=== PATIENT | female | born 1995 | race Caucasian/White ===

== ENCOUNTER 2023-05-13 10:43 | Outpatient (CLI) | payer OTHER, SELFPAY ==
--- NOTE | 2023-05-13 11:00 | CRLHL7_ITS ---
For Patients: As a result of the Century Cures Act, medical imaging exams and procedure reports are released immediately into your electronic medical record. You may view this report before your referring provider. If you have questions, please contact your health care provider. INDICATION: Abdominal pain TECHNIQUE: Ultrasound abdomen limited. Sonographic images of the right upper quadrant were obtained using michael-scale and color Doppler images. COMPARISON: None FINDINGS: Liver: Normal in size and echotexture. No masses. No intrahepatic biliary dilatation. Gallbladder: Cholelithiasis. Normal wall thickness. No pericholecystic fluid. Common bile duct: 3 mm. Pancreas: Normal. Right kidney: 9.6 cm. Normal echotexture and cortex. No masses, stones, or hydronephrosis. Vasculature: Proximal abdominal aorta and IVC are normal. IMPRESSION: Cholelithiasis in an otherwise normal appearing gallbladder. Normal common bile duct. Dictated by Gage Mcconnell MD @ 05/13/2023 2:24:35 PM (Electronically Signed)
== END 2023-05-13 10:44 | disposition home or self-care (01) ==
LOC: US 10:43
PROVIDERS: PCP Family Medicine; Visit Provider Family Medicine
DX: R10.11 Right upper quadrant pain (principal); K80.20 Calculus of gallbladder without cholecystitis without obstruction
CPT/HCPCS: 76705

== ENCOUNTER 2023-05-29 08:05 | Day surgery (SDC) | payer OTHER, SELFPAY ==
[2023-05-29] VITALS (13 sets, daily range): BP systolic 100–116; BP diastolic 62–78; PULSE 54–69; RESP 16–18; TEMP 36.4–36.9; O2SAT 94–99; BMI 33.3
[2023-05-29 08:32] LABS: Ur HCG Qualitative* Negative (Negative)
[2023-05-29] MEDS: SODIUM CHLORIDE 0.9 % (FLUSH) 10 ML SYRINGE IVF (08:47)
[2023-05-29] MEDS: LACTATED RINGERS 1000 ML 1,000 ML 100 ML IV (08:47)
--- NOTE | 2023-05-29 09:00 | PM.GSPRC ---
Operative Note Pre-op diagnosis: Biliary colic Post-op diagnosis: Same Type of Procedure: Laparoscopic cholecystectomy Indications: Patient is a 27-year-old female with right upper quadrant pain. She was found to have gallstones. We discussed symptoms biliary colic and, while her symptoms came on slightly longer than 1 would expect for typical biliary colic, we discussed options and after discussion of risks and benefits she elected to proceed with cholecystectomy. Procedure Description: After discussing the risks and benefits of the procedure, the patient signed informed consent.? The operative site was marked and the patient was brought to the operating room and placed on the operating table in supine position.? Care was taken to pad the patient's pressure points.?? The patient was then intubated by anesthesia.?? The operative site was then prepped and draped in the usual sterile fashion.? A time-out was then performed. Entrance to the abdomen was gained via a 5 mm Visiport in the left upper quadrant. The abdomen was insufflated and briefly surveyed for signs of injury. There was none. A 10 mm umbilical port was placed as well as 2 working ports along the right costal margin, all under direct vision. The patient was then placed in reverse Trendelenburg position with the right side up. The gallbladder fundus was grasped and retracted cephalad. The infundibulum was grasped. A combination of hook cautery and blunt dissection was used to carefully dissect out the cystic duct and artery until they could clearly be seen entering the gallbladder without any intervening structures. The gallbladder was dissected off the cystic plate to achieve the critical view. There were stones impacted in the cystic duct. These were pushed back into the gallbladder. Once the critical view was achieved, the cystic duct and artery were each clipped with 2 clips proximally and 1 clip distally and transected with the scissors. The gallbladder was then taken off of the liver bed and removed from the abdomen using an Endo-Catch bag. The gallbladder bed was surveyed for hemostasis which appeared adequate. The ports were removed and the abdomen was desufflated. The umbilical port fascia was closed with 0 Vicryl. The skin was closed with absorbable subcuticular suture. Sterile dressings were then applied. Instrument sponge and needle counts were correct at the end of the case. The patient was then woken and transferred to the PACU in stable condition. ? The patient tolerated the procedure well. Findings: Gallstone Anesthesia: GETA Surgeon: Patsy Isbell MD Estimated blood loss (mL): 5 Specimen: Gallbladder Condition: stable Disposition: PACU Date of procedure: 05/29/23
[2023-05-29] MEDS: CEFAZOLIN 2 GM INJ IVP (09:25)
[2023-05-29] MEDS: BUPIVACAINE 0.25% 30 ML INJECTION (10:01)
--- NOTE | 2023-05-29 10:12 | SUR.OPER ---
PATIENT QUESTIONS ANSWERED SATISFACTORILY PREOPERATIVELY. PATIENT BROUGHT TO OR #1 PER CART. Patient positioned supine on OR #1 bed. The perioperative team supported arms bilaterally on arm boards for the intubation. Final approval of positioning by surgeon.
--- NOTE | 2023-05-29 10:25 | W.ANESCHARGE ---
Anesthesia Charges Start Date/Time Anesthesia Start Date: 05/29/23 Anesthesia Start Time: 09:20 Stop Date/Time Anesthesia Stop Date: 05/29/23 Anesthesia Stop Time: 10:22
[2023-05-29] MEDS: fentaNYL 100 MCG/2 ML inj 50 MCG IVP (10:37)
--- NOTE | 2023-05-29 10:58 | W.ANESCHARGE ---
Anesthesia Charges Start Date/Time Anesthesia Start Date: 05/29/23 Anesthesia Start Time: 09:20 Stop Date/Time Anesthesia Stop Date: 05/29/23 Anesthesia Stop Time: 10:22
== END 2023-05-29 12:03 | disposition home or self-care (01) ==
PROVIDERS: PCP Family Medicine; Visit Provider Surgery
PROC: 0FT44ZZ Resection of Gallbladder, Percutaneous Endoscopic Approach (ICD-10-PCS; CPT 47562; principal; 2023-05-29 09:45)
DX: K80.10 Calculus of gallbladder with chronic cholecystitis without obstruction (principal)
CPT/HCPCS: 47562; 00790; 81025; 88304; J0330; J0665; J0690; J1100; J1885; J2250; J2405; J2704; J2710; J3010; J7120

== ENCOUNTER 2023-08-07 07:00 | Outpatient (CLI) | payer OTHER, SELFPAY | END 2023-08-07 07:01 | disposition home or self-care (01) | LOC: NFLDREF 08-13 11:55 | PROVIDERS: PCP Family Medicine; Referring Provider Family Medicine; Visit Provider Family Medicine | DX: R19.7 Diarrhea, unspecified (principal) | CPT/HCPCS: 87045; 87046; 87177; 87209; 87427; 87493 ==

== ENCOUNTER 2023-09-30 12:48 | Outpatient (CLI) | payer OTHER, SELFPAY ==
--- NOTE | 2023-09-30 13:00 | CRLHL7_ITS ---
For Patients: As a result of the Century Cures Act, medical imaging exams and procedure reports are released immediately into your electronic medical record. You may view this report before your referring provider. If you have questions, please contact your health care provider. INDICATION: Dating and viability TECHNIQUE: Transvaginal scanning was performed to optimally evaluate the IUP and adnexa. Ovarian blood flow was evaluated with color-flow and pulsed Doppler. COMPARISON: None. FINDINGS: There is a living IUP with gestational age of 9 weeks 2 days by LMP and today`s crown-rump length. EDC is 05/02/2024. The embryonic heart rate is measured at 169 beats per minute. The placenta is not yet formed. A 3.3 x 2.3 x 0.8 cm subchorionic hemorrhage is noted. A corpus luteum is noted on the left. The right ovary measures 2.7 x 2.0 x 1.8 cm and the left 3.8 x 2.3 x 2.0 cm. Ovarian blood flow is demonstrated with color-flow and pulsed Doppler. No adnexal mass or free fluid is apparent. IMPRESSION: 1. Living IUP with gestational age of 9 weeks 2 days by LMP and today`s crown-rump length. EDC is 05/02/2024. 2. 3.3 x 2.3 x 0.8 cm subchorionic hemorrhage. Dictated by Aniket Stephen MD @ 10/02/2023 12:59:59 PM (Electronically Signed)
== END 2023-09-30 12:49 | disposition home or self-care (01) ==
LOC: US 12:48
PROVIDERS: PCP Family Medicine; Visit Provider Physician Assistant
DX: Z34.91 Encounter for supervision of normal pregnancy, unspecified, first trimester (principal); O20.9 Hemorrhage in early pregnancy, unspecified; Z3A.09 9 weeks gestation of pregnancy
CPT/HCPCS: 76817; 86592; 86703; 86704; 86706; 86762; 86787; 86803; 86850; 86900; 86901; 87086; 87340; 87491; 87591

== ENCOUNTER 2023-09-30 14:01 | Outpatient (CLI) | payer OTHER, SELFPAY ==
--- OUTSIDE RECORDS SUMMARY | 2023-09-30 14:36 | XMS_ITS | Clinical Summary ---
Author Name Unknown Organization [facility] [facility] Address [place], [place] [address] Care Team Providers Care Press Offbearer Name Role Phone Gage Chavis MD Primary Care Provider + Allergies No known active allergies Medications Medication Sig Dispensed Refills Start Date End Date Status pantoprazole (PROTONIX) 40 mg delayed-release tabletIndications:Ab dominal pain, epigastric Take 1 Tablet (40 mg) by mouth once daily before a meal. 90 Tablet 0 02/01/2021 Active vit 28/iron fum/folic (multivitamin folic acid 1 mg) Take 1 Tablet by mouth once daily. 90 Tablet 3 03/19/2021 Active HYDROcodone-acetamin ophen ([place]) 5-325 mg per tabletIndications:Ga llbladder attack Take 1-2 Tablets by mouth every 4 hours if needed for Pain. Max acetaminophen dose: 4000mg in 24 hrs. 4 Tablet 0 05/04/2023 Active ondansetron (ZOFRAN ODT) 4 mg disintegrating tabletIndications:Ga llbladder attack Place 1 Tablet (4 mg) on the tongue 3 times daily if needed for Nausea/Vomiting. 4 Tablet 0 05/04/2023 Active Active Problems Problem Noted Date Diagnosed Date Supervision of other normal 03/19/2021 Chronic GERD 03/03/2021 Immunizations Name Administration Dates Next Due COVID-19 vaccine (Vendormate-Bio NTech 30mcg/0.3mL) [employer] 02/26/2021,02/02/2021 DTP 05/19/2001 DTP-HIB 1995,1995,1995 DTaP 11/24/1996 Hepatitis B (Peds) 01/27/1996,1995 Hepatitis B, Unspecified 1995 Human Papilloma Virus Vaccine 08/27/2007, 007,02/09/2007 Inactivated Polio Vaccine 05/19/2001,1995 Influenza, IIV3 (Age >=3 years) 07/15/2012 Influenza, IIV4 07/28/2015 Influenza, IIV4 (=>6mos) MDV 07/03/2018 Influenza, Whole Virus 08/03/2008 MMR 05/19/2001,09/13/1996 Meningococcal Vaccine (Menactra) 04/29/2008 Meningococcal Vaccine (Menomune) 02/12/2016 Meningococcal, Unspecified 02/12/2016 Oral Polio Vaccine 1995,1995 Tdap 03/02/2021,04/29/2008 Family History Medical History Relation Name Comments Heart Disease Brother Diabetes type II Father COPD Maternal Grandfather Heart Disease Maternal Grandfather No Known Problems Mother No Known Problems Sister Relation Name Status Comments Brother Alive Father Alive Maternal Grandfather Alive Maternal Grandmother Mother Alive Paternal Grandfather Paternal Grandmother Sister Alive Social History Tobacco Use Types Packs/Day Years Used Date Smoking Tobacco: Never Smokeless Tobacco: Never Alcohol Use Standard Drinks/Week Comments Not Currently 0 (1 standard drink = 0.6 oz pur e alcohol) PHQ-2 Answer Date Recorded PHQ-2 TOTAL SCORE 0 03/02/2021 Social Connections Answer Date Recorded Frequency of Communication with Friends and Fami ly Not on file 09/22/2021 Financial Resource Strain Answer Date R ecorded Difficulty of Paying Living Expenses Not on file 09/22/2021 Difficulty of Paying Living Expenses Not on file 09/22/2021 Sex and Gender Information Value Date Recorded Sex Assigned at Not on file Gender Identity Not on file Sexual Orientation Not on file Obstetrics History Para Term AB IAB SAB Ectopic Multiple Livin g Live Births 1 Date Outcome GA Total Labor Labor/2nd/3rd Weight Sex Delivery Anes PTL Ana Maria A1 A5 Name Cl in Last Filed Vital Signs Vital Sign Reading Time Taken Comments Blood Pressure 113/88 05/04/2023 10:30 AM CDT Pulse 72 05/04/2023 10:30 AM CDT Temperature 36.4 ??C (97.6 ??F) 05/04/2023 8:11 AM CD T Respiratory Rate 20 05/04/2023 8:11 AM CDT Oxygen Saturation 100% 05/04/2023 10:30 AM CDT Inhaled Oxygen Concentration - - Weight 84.8 kg (187 lb) 05/04/2023 8:11 AM CDT Height 160 cm (5' 3) 05/04/2023 8:11 AM CDT Body Mass Index 33.13 05/04/2023 8:11 AM CDT Plan of Treatment Health Maintenance Due Date Last Done Comments Depression screening for age 12+ 03/02/2022 03/02/2021 BMI (ht and wt on same day) for age 18+ 03/19/2022 03/19/2021, 03/02/2021, 02/01/2021 COVID-19 vaccine series ( season) 2023 02/26/2021, 02/02/2021 Influenza for age 9-49 05/23/2023 8, 07/28/2015, 07/15/2012, Additional history exists Pap test for age 21-65 03/02/2024 03/02/2021 Tetanus booster 03/02/2031 03/02/2021, 04/29/2008 Tdap Completed 03/02/2021, 04/29/2008 HIV for age 15-65 Completed 03/19/2021 Hepatitis C screening for age 18-79 Completed 03/19/2021 Pneumococcal series for age 6-64 Aged Out No longer eligible based on patient's age to complete this topic Care Teams Press Offbearer Relationship Specialty Start Date End Date Gage Chavis MD [address] [place] [address] PCP - General Family Practice 05/04/23
[2023-09-30 19:25] LABS: Chlamydia DNA Amplified* NOT DETECTED (No Detected); GC DNA Amplified* NOT DETECTED (No Detected)
== END 2023-09-30 14:02 | disposition home or self-care (01) ==
PROVIDERS: PCP Family Medicine; Visit Provider Physician Assistant
DX: Z34.91 Encounter for supervision of normal pregnancy, unspecified, first trimester (principal); Z3A.09 9 weeks gestation of pregnancy
CPT/HCPCS: 86592; 86703; 86704; 86706; 86762; 86787; 86803; 86850; 86900; 86901; 87086; 87340; 87491; 87591

== ENCOUNTER 2023-11-28 07:37 | Outpatient (CLI) | payer OTHER, SELFPAY | END 2023-11-28 07:38 | disposition home or self-care (01) | LOC: NFLDREF 09:47 | PROVIDERS: PCP Family Medicine; Referring Provider Family Medicine; Visit Provider Obstetrics & Gynecology | DX: R73.09 Other abnormal glucose (principal) | CPT/HCPCS: 82951; 82952 ==

== ENCOUNTER 2023-12-22 07:54 | Outpatient (CLI) | payer OTHER, SELFPAY ==
--- NOTE | 2023-12-22 08:15 | US_ITS ---
Patient: CHRISTINE LUI Facility:?[facility] Patient ID:?[id number] Site Patient ID:?[id number]. Site :?1995 Study:?US-OB Pelvis OB ANATOMY-12/22/2023 9:07:05 AM Ordering Physician:JACOB NELSON M.D. Final Report: INDICATION: Evaluate anatomy. COMPARISON: 09/30/2023 TECHNIQUE: Real time michael scale imaging of the fetus was performed as well as color Doppler analysis of the umbilical vessels. FINDINGS: Sonographic imaging demonstrates a single living intrauterine gestation. Fetus demonstrates a regular cardiac rate of 150 beats per minute. Fetus has a variable position. The placenta lies anteriorly without evidence of placenta previa. Placental edge is 2.7 cm from the internal cervical os. Amniotic fluid volume appears normal. Single deepest vertical pocket: 5.5 cm. The cervix is closed and measures 5.0 cm in length. The composite ultrasound gestational age is calculated at 21 weeks 1 day with an estimated sonographic due date of 05/02/2024. The estimated weight is 423 grams which lies at the 60th %. The following biometric measurements were obtained: Biparietal diameter: 4.9 cm/20 weeks 5 days 32nd% Head circumference: 19.0 cm/21 weeks 2 days 46th% Abdominal circumference: 16.8 cm/21 weeks 6 days 66th% Femur length: 3.5 cm/21 weeks 0 days 37th% The HC/AC ratio measures: 1.13 range (1.06-1.25) On anatomic survey, there is a normal appearance of the cerebral ventricles, cavum septi pellucidi, cisterna magna and cerebellum. The nose, lips, and facial profile are suboptimally visualized due to position. The cervical, thoracic and lumbar spine are not well visualized due to position. Incomplete visualization of the cardiac structures due to position. The diaphragm and stomach appear normal. The kidneys and bladder also appear normal. There is a normal three-vessel cord and cord insertion site. The four extremities appear normal. IMPRESSION: Concordance of clinical and sonographic dating. Incomplete visualization of the spine, heart and face due to position. Remainder of the anatomic survey normal. Short-term follow-up recommended. Dictated by Gage Capone MD @ 12/23/2023 5:13:58 AM Signed by:?Gage Capone MD @12/23/2023 5:13:58 AM (Electronic Signature)
== END 2023-12-22 07:55 | disposition home or self-care (01) ==
LOC: US 07:55
PROVIDERS: PCP Family Medicine; Visit Provider Obstetrics & Gynecology
DX: Z34.92 Encounter for supervision of normal pregnancy, unspecified, second trimester (principal); Z3A.21 21 weeks gestation of pregnancy
CPT/HCPCS: 76805

== ENCOUNTER 2023-12-29 15:51 | Outpatient (CLI) | payer OTHER, SELFPAY ==
--- OUTSIDE RECORDS SUMMARY | 2023-12-29 15:53 | XMS_ITS | Clinical Summary ---
Author Name Unknown Organization [employer] [facility] Address [place], [place] [address] Care Team Providers Care Silo Operator Name Role Phone Gage Chavis MD Primary Care Provider + Allergies No known active allergies Medications Medication Sig Dispensed Refills Start Date End Date Status pantoprazole (PROTONIX) 40 mg delayed-release tabletIndications:Ab dominal pain, epigastric Take 1 Tablet (40 mg) by mouth once daily before a meal. 90 Tablet 02/01/2021 Active vit 28/iron fum/folic (multivitamin folic acid 1 mg) Take 1 Tablet by mouth once daily. 90 Tablet 3 03/19/2021 Active HYDROcodone-acetamin ophen ([place]) 5-325 mg per tabletIndications:Ga llbladder attack Take 1-2 Tablets by mouth every 4 hours if needed for Pain. Max acetaminophen dose: 4000mg in 24 hrs. 4 Tablet 05/04/2023 Active ondansetron (ZOFRAN ODT) 4 mg disintegrating tabletIndications:Ga llbladder attack Place 1 Tablet (4 mg) on the tongue 3 times daily if needed for Nausea/Vomiting. 4 Tablet 05/04/2023 Active Active Problems Problem Noted Date Diagnosed Date Supervision of other normal 03/19/2021 Chronic GERD 03/03/2021 Immunizations Name Administration Dates Next Due COVID-19 vaccine (Pufetto-Bio NTech 30mcg/0.3mL) [employer] 02/26/2021,02/02/2021 DTP 05/19/2001 [...] 03/19/2022 03/19/2021, 03/02/2021, 02/01/2021 COVID-19 vaccine series () 05/23/2023 02/26/2021, 02/02/2021 Pap test for age 21-65 03/02/2024 03/02/2021 Influenza for age 9-49 05/23/2024 8, 07/28/2015, 07/15/2012, Additional history exists Tetanus booster 03/02/2031 03/02/2021, 04/29/2008 Tdap Completed 03/02/2021, 04/29/2008 HIV for age 15-65 Completed 03/19/2021 Hepatitis C screening for age 18-79 Completed 03/19/2021 Pneumococcal series for age 6-64 Aged Out No longer eligible based on patient's age to complete this topic Procedures Procedure Name Priority Date/Time Associated Diagnosis Comments ANTI HIV 1/2 Routine 03/19/2021 9:45 AM CDT Supervision of other normal ANTI HCV Routine 03/19/2021 9:45 AM CDT Supervision of other normal [employer] PREP PAP SCREEN IMAGED Routine 03/02/2021 3:00 PM CDT Cervical cancer screening from Last 3 Months or Most Recently Relevant to Health Maintenance Results * ANTI HCV (03/19/2021 9:45 AM CDT) HEPATITIS C ANTIBODY Non-React emelina Non-React emelina 03/19/2021 4:07 PM CDT [facility] Comment:Antibodies to HCV no t detected; does not exclude the possibility of exposure to HCV. Blood BLOOD SPECIMEN / Unknown Venipuncture / Unknown 03/19/2021 9:45 AM CDT 03/19/2021 9:47 AM CDT Joy Echeverria MD SEND OUTS [facility] [address] * ANTI HIV 1/2 (03/19/2021 9:45 AM CDT) Pathologist [facility] HIV-1/HIV-2 ANTIBODY Non-Reacti ve Non-Reacti ve 03/19/2021 4:22 PM CDT [facility] Comment:HIV-1 p24 and HIV-1/ HIV-2 Ab not detected. Blood BLOOD SPECIMEN / Unknown Venipuncture / Unknown 03/19/2021 9:45 AM CDT 03/19/2021 9:47 AM CDT Joy Echeverria MD SEND OUTS Performing Organization Address City/[facility]/ZIP Co de Phone Number [facility] [address] * [employer] PREP PAP SCREEN IMAGED (03/02/2021 3:00 PM CDT) Pathologist [facility] Case Report Gynecologic Cytology Report ? Case: [id number] ? Authorizing Provider: ??Joy Echeverria MD ??Collected: ? 03/02/2021 1500 ? Ordering Location: ? [facility] ?Received: ?03/02/2021 1526 ? Clinic ? First Screen: ?Phuong German ? Specimen: ?[employer] ThinPrep Vial Screening, Cervical ? 03/14/2021 2:50 PM CDT [facility] INTERPRETATION/ RESULT NEGATIVE FOR INTRAEPITHELIAL LESION OR MALIGNANCY (NIL) (none) 03/14/2021 2:50 PM CDT [facility] IMEN ADEQUACY Satisfactory for evaluation Endocervical component present 03/14/2021 2:50 PM CDT [facility] HPV REQUEST HPV if ASCUS 03/14/2021 2:50 PM CDT [facility] Date of LMP 01/29/2021 03/14/2021 2:50 PM CDT [facility] Last Pap Date unknown 03/14/2021 2:50 PM CDT [facility] Last Pap Result NIL 2:[address] [facility] Abnormal Pap or [place] Bx in last 5 years No 03/14/2021 2:50 PM CDT [facility] Menstrual Status Regular Periods 03/14/2021 2:50 PM CDT [facility] [place] Bx Done Today No 03/14/2021 2:50 PM CDT [facility] Additional Information None given 03/14/2021 2:50 PM CDT [facility] Comment: Cytology is screened at [facility] - [address], [place] [address] and [facility] - [address], [place] [address] and [facility] - [address] [place] [address] Interpreted at [facility] - [address], [place] [address] Automated Review Successful 03/14/2021 2:50 PM CDT [facility] Comment:Specimen processed s uccessfully by automated hand i cutter device, ThinPrep Imaging System, [employer] Note The pap test is a screening technique, not a diagnostic procedure. It is used primarily to screen for squamous cancers and precursor lesions. Published studies have shown that it is subject to both false negative and false positive results. The pap test should not be used as the sole means to diagnose or exclude pre-malignant and malignant lesions. 03/14/2021 2:50 PM CDT [facility] Other (Cervical) Non-Blood / Unknown 03/02/2021 3:00 PM CDT 03/02/2021 3:26 PM CDT Joy Echeverria MD PATHOLOGY/CYTOLO GY [facility] [address] [place] [address], [place] from Last 3 Months or Most Recently Relevant to Health Maintenance Care Teams Silo Operator Relationship Specialty Start Date End Date Gage Chavis MD [address] [place] [address] PCP - General Family Practice 05/04/23
--- NOTE | 2023-12-29 16:00 | US_ITS ---
Patient: CHRISTINE LIU Facility:?[facility] Patient ID:?[id number] Site Patient ID:?[id number]. Site :?1995 Study:?US-OB Pelvis OB F/U-12/29/2023 5:18:27 PM Ordering Physician:?Cindy Meraz Final Report: INDICATION: Follow-up anatomy COMPARISON: 12/22/2023 TECHNIQUE: Real time michael scale imaging of the fetus was performed. FINDINGS: Sonographic imaging demonstrates a single living intrauterine gestation. Fetus demonstrates a regular cardiac rate of 149 beats per minute. Fetus has a vertex position. The placenta lies anteriorly. The placental edge 2.7 cm from the internal cervical os. Amniotic fluid volume appears normal. Single deepest vertical pocket: 3.7 cm. The cervix is closed and measures 3.4 cm in length. The nose, lips, and facial profile appear normal. The cervical, thoracic and lumbar spine are well visualized and appear normal. There is a normal four- chamber heart view and the left and right ventricular outflow tracts appear normal. IMPRESSION: Normal heart, spine and facial anatomy. Dictated by Gage Capone MD @ 12/31/2023 5:46:44 AM Signed by:?Gage Capone MD @12/31/2023 5:46:44 AM (Electronic Signature)
== END 2023-12-29 15:52 | disposition home or self-care (01) ==
LOC: US 15:52
PROVIDERS: PCP Family Medicine; Visit Provider Obstetrics & Gynecology
DX: Z34.90 Encounter for supervision of normal pregnancy, unspecified, unspecified trimester (principal)
CPT/HCPCS: 76816

== ENCOUNTER 2024-02-17 09:47 | Outpatient (CLI) | payer OTHER, SELFPAY ==
--- OUTSIDE RECORDS SUMMARY | 2024-02-19 07:21 | XMS_ITS | Clinical Summary ---
Author Organization [employer] [facility] Address [place], [place] [address] Care Team Providers Care Maintenance Plumber Name Role Phone Gage Chavis MD Primary [...] 90 Tablet 3 03/19/2021 Active HYDROcodone-acetamin ophen ([place]) 5-325 mg per tabletIndications:Ga llbladder attack Take [...] Name Administration Dates Next Due COVID-19 vaccine (CSR-Bio NTech 30mcg/0.3mL) [employer] 02/26/2021,02/02/2021 DTP 05/19/2001 [...] 9:45 AM CDT Supervision of other normal COMPENSATION SPECIALIST THIN PREP PAP SCREEN IMAGED Routine 03/02/2021 3:00 PM CDT Cervical cancer screening from Last 3 Months or Most Recently Relevant to Health Maintenance Results * ANTI HCV (03/19/2021 9:45 AM CDT) Pathologist [facility] HEPATITIS C ANTIBODY Non-React emelina Non-React emelina 03/19/2021 4:07 PM CDT [facility] TRAL LABORATORY Comment:Antibodies to HCV no t detected; does not exclude the possibility of exposure to HCV. Blood BLOOD SPECIMEN / Unknown Venipuncture / Unknown 03/19/2021 9:45 AM CDT 03/19/2021 9:47 AM CDT Joy Echeverria MD SEND OUTS [facility] [address] * ANTI HIV 1/2 (03/19/2021 9:45 AM CDT) Pathologist [facility] HIV-1/HIV-2 ANTIBODY Non-Reacti ve Non-Reacti ve 03/19/2021 4:22 PM CDT [facility] Comment:HIV-1 p24 and HIV-1/ HIV-2 Ab not detected. Blood BLOOD SPECIMEN / Unknown Venipuncture / Unknown 03/19/2021 9:45 AM CDT 03/19/2021 9:47 AM CDT Joy Echeverria MD SEND OUTS Performing Organization Address City/[facility]/ZIP Co de Phone Number [facility] [address] * COMPENSATION SPECIALIST THIN PREP PAP SCREEN IMAGED (03/02/2021 3:00 PM CDT) Pathologist [facility] Case Report Gynecologic Cytology Report ? Case: [id number] ? Authorizing Provider: ??Joy Echeverria MD ??Collected: ? 03/02/2021 1500 ? Ordering Location: ? [facility] ?Received: ?03/02/2021 1526 ? Clinic ? First Screen: ?Phuong German ? Specimen: ?COMPENSATION SPECIALIST ThinPrep Vial Screening, Cervical ? 03/14/2021 2:50 PM CDT [facility]-C ENTRAL LABORATORY INTERPRETATION/ RESULT NEGATIVE FOR INTRAEPITHELIAL LESION OR MALIGNANCY (NIL) (none) 03/14/2021 2:50 PM CDT [facility] EN[facility]AL LAB[facility] IMEN ADEQUACY Satisfactory for evaluation Endocervical component present 03/14/2021 2:50 PM CDT [facility] HPV REQUEST HPV if ASCUS 03/14/2021 2:50 PM CDT [facility] Date of LMP 01/29/2021 03/14/2021 2:50 PM CDT [facility] EN[facility] LAB[facility] Last Pap Date unknown 03/14/2021 2:50 PM CDT [facility] Last Pap Result NIL 2:50 PM CDT [facility]- ENTRNH LABORATORY Abnormal Pap or Wayne Bx in last 5 years No 03/14/2021 2:50 PM CDT [facility] Menstrual Status Regular Periods 03/14/2021 2:50 PM CDT [facility] Wayne Bx Done Today No 03/14/2021 2:50 PM CDT [facility] Additional Information None given 03/14/2021 2:50 PM CDT [facility] ENTRNH LABORATORY Comment: Cytology is screened at [facility] Laboratory - [address], [place] [address] and [facility] Laboratory - [address], [place] [address] and [facility] Laboratory - [address] [place] [address] Interpreted at [facility] Laboratory - [address], [place] [address] Automated Review Successful 03/14/2021 2:50 PM CDT [facility] Comment:Specimen processed s uccessfully by automated doll wig maker device, ThinPrep Imaging System, [employer] Note The pap test is a [...] and malignant lesions. 03/14/2021 2:50 PM CDT [facility] Other (Cervical) Non-Blood / Unknown 03/02/2021 3:00 PM CDT 03/02/2021 3:26 PM CDT Joy Echeverria MD PATHOLOGY/CYTOLO GY [facility] [address] [place] [address], [place] from Last 3 Months or Most Recently Relevant to Health Maintenance Care Teams Maintenance Plumber Relationship Specialty Start Date End Date Gage Chavis MD [address] [place] [address] PCP - General Family Practice 05/04/23
== END 2024-02-17 09:48 | disposition home or self-care (01) ==
LOC: NFLDREF 02-19 07:19
PROVIDERS: PCP Family Medicine; Referring Provider Family Medicine; Visit Provider Obstetrics & Gynecology
DX: Z34.93 Encounter for supervision of normal pregnancy, unspecified, third trimester (principal); Z3A.29 29 weeks gestation of pregnancy
CPT/HCPCS: 86592

== ENCOUNTER 2024-03-08 07:14 | Outpatient (CLI) | payer OTHER, SELFPAY ==
--- NOTE | 2024-03-08 07:15 | CRLHL7_ITS ---
For Patients: As a result of the Century Cures Act, medical imaging exams and procedure reports are released immediately into your electronic medical record. You may view this report before your referring provider. If you have questions, please contact your health care provider. INDICATION: Gestational diabetes TECHNIQUE: Real time michael scale imaging of the fetus was performed. COMPARISON: 12/29/2023 FINDINGS: Sonographic imaging demonstrates a single living intrauterine gestation. Fetus demonstrates a regular cardiac rate of 157 beats per minute. Fetus has a vertex position. The placenta lies anteriorly. Amniotic fluid volume appears normal and there is a single deepest pocket of 4.1 cm. The estimated weight is 1744gm which lies at the 17th %. On the prior OB ultrasound dated 12/29/2023 the estimated weight was at the 71st percentile. BPD 12th percentile. HC 4th percentile. AC is 26th percentile. FL 18th percentile. The fetus was active and demonstrated normal breathing movements. There was normal flexion and extension of the trunk and extremities. IMPRESSION: Normal biophysical profile score 8/8. Sonographic gestational age 31 weeks 2 days and sonographic due date of 05/08/2024. Sonographic age is 6 days behind the clinical age. Estimated weight 17th percentile. Abdominal circumference is 26th percentile. Dictated by Gage Capone MD @ 03/08/2024 1:25:42 PM (Electronically Signed)
--- OUTSIDE RECORDS SUMMARY | 2024-03-08 07:17 | XMS_ITS | Clinical Summary ---
Author Organization [facility] s & [facility] Address [place], [place] [address] Care Team Providers Care Community Resource Consultant Name Role Phone Gage Chavis MD Primary [...] 90 Tablet 3 03/19/2021 Active HYDROcodone-acetamin ophen ([place]) 5-325 mg per tabletIndications:Ga llbladder attack Take [...] of other normal 03/19/2021 Chronic GERD 03/03/2021 Encounters Date Type Department Care Team Description 03/08/2024 4:07 AM CDT - 03/08/2024 4:[address] [facility] [address] [place] [address] Discharge Disposition: Home Self Care 03/08/2024 Travel from Last 3 Months Immunizations Name Administration Dates Next Due COVID-19 vaccine ([employer]-Bio NTech 30mcg/0.3mL) PF, MDV 02/26/2021,02/02/2021 DTP 05/19/2001 DTP-HIB 1995,1995,1995 DTaP 11/24/1996 [...] Outcome GA Total Labor Labor/2nd/3rd Weight Sex Type Anes PTL Ana Maria A1 A5 Name Clin Last Filed Vital Signs Vital Sign Reading [...] for age 18+ 03/19/2022 03/19/2021, 03/02/2021, 02/01/2021 Pap test for age 21-65 03/02/2024 03/02/2021 Influenza for age 9-49 05/23/2024 8, 07/28/2015, 07/15/2012, Additional history exists Tetanus booster 03/02/2031 03/02/2021, 04/29/2008 Tdap Completed 03/02/2021, 04/29/2008 HIV for age 15-65 Completed 03/19/2021 Hepatitis C screening for age 18-79 Completed 03/19/2021 COVID-19 vaccine series Completed 09/30/19 24, 02/26/2021, 02/02/2021 Pneumococcal series for age 6-64 Aged Out No longer eligible based on patient's age to complete this topic Procedures Procedure Name Priority Date/Time Associated Diagnosis Comments ANTI HIV 1/2 Routine 03/19/2021 9:45 AM CDT Supervision of other normal ANTI HCV Routine 03/19/2021 9:45 AM CDT Supervision of other normal COMPLAINT COORDINATOR THIN PREP PAP SCREEN IMAGED Routine 03/02/2021 3:00 PM CDT Cervical cancer screening from Last 3 Months or Most Recently Relevant to Health Maintenance Results * ANTI HCV (03/19/2021 9:45 AM CDT) HEPATITIS C ANTIBODY Non-React emelina Non-React emelina 03/19/2021 4:07 PM CDT [facility] TRAL LABORATORY Comment:Antibodies to HCV no t detected; does not exclude the possibility of exposure to HCV. Blood BLOOD SPECIMEN / Unknown Venipuncture / Unknown 03/19/2021 9:45 AM CDT 03/19/2021 9:47 AM CDT Joy Echeverria MD SEND OUTS Performing Organization Address City/[facility]/ZIP Co de Phone Number [facility] [address] * ANTI HIV 1/2 (03/19/2021 9:45 AM CDT) Pathologist [facility] HIV-1/HIV-2 ANTIBODY Non-Reacti ve Non-Reacti ve 03/19/2021 4:22 PM CDT [facility] TRAL LABORATORY Comment:HIV-1 p24 and HIV-1/ HIV-2 Ab not detected. Blood BLOOD SPECIMEN / Unknown Venipuncture / Unknown 03/19/2021 9:45 AM CDT 03/19/2021 9:47 AM CDT Joy Echeverria MD SEND OUTS [facility] [address] * COMPLAINT COORDINATOR THIN PREP PAP SCREEN IMAGED (03/02/2021 3:00 PM CDT) Pathologist [facility] Case Report Gynecologic Cytology Report ? Case: [id number] ? Authorizing Provider: ??Joy Echeverria MD ??Collected: ? 03/02/2021 1500 ? Ordering Location: ? [facility] ?Received: ?03/02/2021 1526 ? Clinic ? First Screen: ?Phuong German ? Specimen: ?COMPLAINT COORDINATOR ThinPrep Vial Screening, Cervical ? 03/14/2021 2:50 PM CDT [facility]OR[facility]-C ENTRAL LABORATORY INTERPRETATION/ RESULT NEGATIVE FOR INTRAEPITHELIAL LESION OR MALIGNANCY (NIL) (none) 03/14/2021 2:50 PM CDT [facility]TR[facility] LABORATORY IMEN ADEQUACY Satisfactory for evaluation Endocervical component present 03/14/2021 2:50 PM CDT [facility]OR[facility]-C ENTRAL LABORATORY HPV REQUEST HPV if ASCUS 03/14/2021 2:50 PM CDT [facility] ENTRAL LABORATORY Date of LMP 01/29/2021 03/14/2021 2:50 PM CDT [facility] ENTRAL LABORATORY Last Pap Date unknown 03/14/2021 2:50 PM CDT [facility] ENTRAL LABORATORY Last Pap Result NIL 2:50 PM CDT [facility] ENTRAL LABORATORY Abnormal Pap or [place] Bx in last 5 years No 03/14/2021 2:50 PM CDT [facility] ENTRAL LABORATORY Menstrual Status Regular Periods 03/14/2021 2:50 PM CDT [facility] ENTRAL LABORATORY [place] Bx Done Today No 03/14/2021 2:50 PM CDT [facility] Additional Information None given 03/14/2021 2:50 PM CDT [facility] ENTRAL LABORATORY Comment: Cytology is screened at [facility] - [address] [address] and [facility] Laboratory - [address], [place] [address] [address] [facility] Laboratory - [address] [place] [address] Interpreted at [facility] Laboratory - [address], [place] [address] Automated Review Successful 03/14/2021 2:50 PM CDT [facility] ENTR[facility] LABORATORY Comment:Specimen processed s uccessfully by automated route clerk device, ThinPrep Imaging System, [employer] Note The pap test is a [...] and malignant lesions. 03/14/2021 2:50 PM CDT [facility] ENTRAL LABORATORY Other (Cervical) Non-Blood / Unknown 03/02/2021 3:00 PM CDT 03/02/2021 3:26 PM CDT Joy Echeverria MD PATHOLOGY/CYTOLO GY Performing Organization Address City/State/ZIP Co ks Phone Number [facility] LABORAT[facility]-CENTRAL LABORATORY [address] [place] [address], from Last 3 Months or Most Recently Relevant to Health Maintenance Care Teams Community Resource Consultant Relationship Specialty Start Date End Date Gage Chavis MD [address] [place] [address] PCP - General Family Practice 05/04/23
== END 2024-03-08 07:15 | disposition home or self-care (01) ==
LOC: US 07:15
PROVIDERS: PCP Family Medicine; Visit Provider Obstetrics & Gynecology
DX: O24.419 Gestational diabetes mellitus in pregnancy, unspecified control (principal); Z3A.31 31 weeks gestation of pregnancy
CPT/HCPCS: 76816; 76819

== ENCOUNTER 2024-03-15 08:06 | Outpatient (CLI) | payer OTHER, SELFPAY ==
--- OUTSIDE RECORDS SUMMARY | 2024-03-15 08:08 | XMS_ITS | Clinical Summary ---
Author Organization [facility] s & [facility] Address [place], [place] [address] Care Team Providers Care Technician Support Association Name Role Phone Gage Chavis MD Primary [...] Tablet 3 03/19/2021 Active HYDROcodone-acetamin ophen ([place]) 5-325 mg per tabletIndications:Ga llbladder attack Take [...] CDT - 03/08/2024 4:24 AM CDT Emergency [facility] [address] [place] [address] Discharge Disposition: Home Self Care 03/08/2024 Travel from Last 3 Months Immunizations Name Administration Dates Next Due COVID-19 vaccine ([employer] NTech 30mcg/0.3mL) PF, MDV 02/26/2021,02/02/2021 DTP 05/19/2001 [...] 9:45 AM CDT Supervision of other normal CERTIFIED PUBLIC ACCOUNTANT THIN PREP PAP SCREEN IMAGED Routine 03/02/2021 3:00 PM CDT Cervical cancer screening from Last 3 Months or Most Recently Relevant to Health Maintenance Results * ANTI HCV (03/19/2021 9:45 AM CDT) Pathologist [facility] HEPATITIS C ANTIBODY Non-React emelina Non-React emelina 03/19/2021 4:07 PM CDT [facility] TRAL LABORATORY Comment:Antibodies to HCV no t detected; does not exclude the possibility of exposure to HCV. Blood BLOOD SPECIMEN / Unknown Venipuncture / Unknown 03/19/2021 9:45 AM CDT 03/19/2021 9:47 AM CDT Joy Echeverria MD SEND OUTS [facility] [address] * ANTI HIV 1/2 (03/19/2021 9:45 AM CDT) [facility] HIV-1/HIV-2 ANTIBODY Non-Reacti ve Non-Reacti ve 03/19/2021 4:22 PM CDT [facility] TRAL LABORATORY Comment:HIV-1 p24 and HIV-1/ HIV-2 Ab not detected. Blood BLOOD SPECIMEN / Unknown Venipuncture / Unknown 03/19/2021 9:45 AM CDT 03/19/2021 9:47 AM CDT Joy Echeverria MD [facility]S [facility] [address] * CERTIFIED PUBLIC ACCOUNTANT THIN PREP PAP SCREEN IMAGED (03/02/2021 3:00 PM CDT) [facility] Case Report Gynecologic Cytology Report ? Case: [id number] ? Authorizing Provider: ??Joy Echeverria MD ??Collected: ? 03/02/2021 1500 ? Ordering Location: ? [facility] ?Received: ?03/02/2021 1526 ? Clinic ? First Screen: ?Phuong German ? Specimen: ?CERTIFIED PUBLIC ACCOUNTANT ThinPrep Vial Screening, Cervical ? 03/14/2021 2:50 PM CDT [facility] LABORATORY-C ENTRAL LABORATORY INTERPRETATION/ RESULT NEGATIVE FOR INTRAEPITHELIAL LESION OR MALIGNANCY (NIL) (none) 03/14/2021 2:50 PM CDT [facility] LABORATORY-C ENTRAL LABORATORY IMEN ADEQUACY Satisfactory for evaluation Endocervical component present 03/14/2021 2:50 PM CDT [facility] LABORATORY-C ENTRAL LABORATORY HPV REQUEST HPV if ASCUS 03/14/2021 2:50 PM CDT [facility] LABORATORY Date of LMP 01/29/2021 03/14/2021 2:50 PM CDT [facility] LAB[facility] Last Pap Date unknown 03/14/2021 2:50 PM CDT [facility] Last Pap Result NIL 2:50 PM CDT [facility]- ENTRAL LABORATORY Abnormal Pap or Leland Bx in last 5 years No 03/14/2021 2:50 PM CDT [facility] Menstrual Status Regular Periods 03/14/2021 2:50 PM CDT [facility] ENTRAL LABORATORY Leland Bx Done Today No 03/14/2021 2:50 PM CDT [facility] Additional Information None given 03/14/2021 2:50 PM CDT [facility] Comment: Cytology is screened at [facility] Laboratory - [address] [address] and [facility] Laboratory - [address] [place] [address] and [facility] Laboratory - [address] [place] [address] Interpreted at [facility] Laboratory - [address], [place] [address] Automated Review Successful 03/14/2021 2:50 PM CDT [facility] Comment:Specimen processed s uccessfully by automated engine assembly supervisor device, ThinPrep Imaging System, [employer] Note The pap test is a [...] and malignant lesions. 03/14/2021 2:50 PM CDT [facility] Other (Cervical) Non-Blood / Unknown 03/02/2021 3:00 PM CDT 03/02/2021 3:26 PM CDT Joy Echeverria MD PATHOLOGY/CYTOLO GY [facility] [address] [place] [address], from Last 3 Months or Most Recently Relevant to Health Maintenance Care Teams Technician Support Association Relationship Specialty Start Date End Date Gage Chavis MD [address] [place] [address] PCP - General Family Practice 05/04/23
--- NOTE | 2024-03-15 08:15 | CRLHL7_ITS ---
For Patients: As a result of the Century Cures Act, medical imaging exams and procedure reports are released immediately into your electronic medical record. You may view this report before your referring provider. If you have questions, please contact your health care provider. INDICATION: Gestational diabetes; biophysical profile. COMPARISON: BPP March 08, 2024. TECHNIQUE: Biophysical profile. FINDINGS: Single viable intrauterine gestation of 33 weeks and 1 days duration. heart rate 141 beats per minute and regular. Largest amniotic fluid pocket measures 4.6 cm in depth. position is vertex. BPP 8/8. The placenta is anterior with no previa. IMPRESSION: 1. Single viable intrauterine gestation of 33 weeks and 1 day duration. 2. heart rate 141 beats per minute and regular. 3. BPP score 8/8. Dictated by Brunilda Stephen MD @ 03/15/2024 2:01:02 PM (Electronically Signed)
== END 2024-03-15 08:07 | disposition home or self-care (01) ==
LOC: US 08:07
PROVIDERS: PCP Family Medicine; Visit Provider Obstetrics & Gynecology
DX: O24.419 Gestational diabetes mellitus in pregnancy, unspecified control (principal); Z3A.33 33 weeks gestation of pregnancy
CPT/HCPCS: 76819

== ENCOUNTER 2024-03-22 09:21 | Outpatient (CLI) | payer OTHER, SELFPAY ==
--- NOTE | 2024-03-22 09:30 | CRLHL7_ITS ---
For Patients: As a result of the Century Cures Act, medical imaging exams and procedure reports are released immediately into your electronic medical record. You may view this report before your referring provider. If you have questions, please contact your health care provider. INDICATION: Gestational diabetes mellitus COMPARISON: none TECHNIQUE: Real time michael scale imaging of the fetus was performed. Without non-stress testing. FINDINGS: Sonographic imaging demonstrates a single living intrauterine gestation. Fetus demonstrates a regular cardiac rate of 157 beats per minute. Fetus has a vertex position. The amniotic fluid volume appears normal and there is a single deepest pocket measurement of 6.0 cm. The fetus was active and demonstrated normal breathing movements. There was normal flexion and extension of the trunk and extremities. IMPRESSION: Normal biophysical profile score of 8 out of 8. Dictated by Gage Capone MD @ 03/22/2024 2:43:48 PM (Electronically Signed)
--- OUTSIDE RECORDS SUMMARY | 2024-03-22 09:49 | XMS_ITS | Clinical Summary ---
Author Organization [facility] s & [facility]ates Address [place], [place] [address] Care Team Providers Care Cloth Neutralizer Name Role Phone Gage Chavis MD Primary [...] 90 Tablet 3 03/19/2021 Active HYDROcodone-acetamin ophen ([place]) 5-325 mg per tabletIndications:Ga llbladder attack Take [...] CDT - 03/08/2024 4:24 AM CDT Emergency [facility] [address] [place] [address] Discharge Disposition: Home Self Care 03/08/2024 Travel from Last 3 Months Immunizations Name Administration Dates Next Due COVID-19 vaccine ([employer] NTech 30mcg/0.3mL) PF, MDV 02/26/2021,02/02/2021 DTP 05/19/2001 [...] 9:45 AM CDT Supervision of other normal PLANTING MATERIAL REMOVER THIN PREP PAP SCREEN IMAGED Routine 03/02/2021 3:00 PM CDT Cervical cancer screening from Last 3 Months or Most Recently Relevant to Health Maintenance Results * ANTI HCV (03/19/2021 9:45 AM CDT) Pathologist [facility] HEPATITIS C ANTIBODY Non-React emelina Non-React emelina 03/19/2021 4:07 PM CDT [facility] TRAL LABORATORY Comment:Antibodies to HCV no t detected; does not exclude the possibility of exposure to HCV. Blood BLOOD SPECIMEN / Unknown Venipuncture / Unknown 03/19/2021 9:45 AM CDT 03/19/2021 9:47 AM CDT Joy Echeverria MD SEND OUTS [facility] [address] * ANTI HIV 1/2 (03/19/2021 9:45 AM CDT) [facility] HIV-1/HIV-2 ANTIBODY Non-Reacti ve Non-Reacti ve 03/19/2021 4:22 PM CDT [facility] TRAL LABORATORY Comment:HIV-1 p24 and HIV-1/ HIV-2 Ab not detected. Blood BLOOD SPECIMEN / Unknown Venipuncture / Unknown 03/19/2021 9:45 AM CDT 03/19/2021 9:47 AM CDT Joy Echeverria MD S[facility] OUTS [facility] [address] * PLANTING MATERIAL REMOVER THIN PREP PAP SCREEN IMAGED (03/02/2021 3:00 PM CDT) [facility] Case Report Gynecologic Cytology Report ? Case: [id number] ? Authorizing Provider: ??Joy Echeverria MD ??Collected: ? 03/02/2021 1500 ? Ordering Location: ? [facility] [facility] ?Received: ?03/02/2021 1526 ? Clinic ? First Screen: ?Phuong German ? Specimen: ?PLANTING MATERIAL REMOVER ThinPrep Vial Screening, Cervical ? 03/14/2021 2:50 PM CDT [email or web address] LABORATORY-C ENTRAL LABORATORY INTERPRETATION/ RESULT NEGATIVE FOR INTRAEPITHELIAL LESION OR MALIGNANCY (NIL) (none) 03/14/2021 2:50 PM CDT [email or web address] LABORATORY-C ENTRAL LABORATORY IMEN ADEQUACY Satisfactory for evaluation Endocervical component present 03/14/2021 2:50 PM CDT [email or web address] LABORATORY-C ENTRAL LABORATORY HPV REQUEST HPV if ASCUS 03/14/2021 2:50 PM CDT [facility]-C ENTRAL LABORATORY Date of LMP 01/29/2021 03/14/2021 2:50 PM CDT [facility] LABORAT[facility] Last Pap Date unknown 03/14/2021 2:50 PM CDT [facility] LAB[facility] Last Pap Result NIL 2:50 PM CDT [facility] EN[facility] LAB[facility] Abnormal Pap or Denn[place] Bx in last 5 years No 03/14/2021 2:50 PM CDT [facility] Menstrual Status Regular Periods 03/14/2021 2:50 PM CDT [facility] ENTRAL LABORATORY Dennison Bx Done Today No 03/14/2021 2:50 PM CDT [facility] LAB[facility] Additional Information None given 03/14/2021 2:50 PM CDT [facility] Comment: Cytology is screened at [facility] Laboratory - [address], [place] [address] and [facility] - [address] [facility] [place] [address] and [facility] Laboratory - [address] [place] [address] Interpreted at [facility] Laboratory - [address], [place] [address] Automated Review Successful 03/14/2021 2:50 PM CDT [facility] LABORATORY Comment:Specimen processed s uccessfully by automated explosive specialist device, ThinPrep Imaging System, [employer] Note The pap test is a [...] and malignant lesions. 03/14/2021 2:50 PM CDT [facility] LABORAT[facility] Other (Cervical) Non-Blood / Unknown 03/02/2021 3:00 PM CDT 03/02/2021 3:26 PM CDT Joy Echeverria MD PATHOLOGY/CYTOLO GY [facility] LABORATORY [address] [place] [address], from Last 3 Months or Most Recently Relevant to Health Maintenance Care Teams Cloth Neutralizer Relationship Specialty Start Date End Date Gage Chavis MD [address] [place] [address] PCP - General Family Practice 05/04/23
== END 2024-03-22 09:22 | disposition home or self-care (01) ==
LOC: US 09:22
PROVIDERS: PCP Family Medicine; Visit Provider Obstetrics & Gynecology
DX: O24.419 Gestational diabetes mellitus in pregnancy, unspecified control (principal)
CPT/HCPCS: 76819

== ENCOUNTER 2024-04-01 13:51 | Outpatient (CLI) | payer OTHER, SELFPAY ==
--- OUTSIDE RECORDS SUMMARY | 2024-04-01 13:54 | XMS_ITS | Clinical Summary ---
Author Organization [facility] Address [place], [place] [address] Care Team Providers Care Manufacturing Technology Professor Name Role Phone Gage Chavis MD Primary [...] 90 Tablet 3 03/19/2021 Active HYDROcodone-acetamin ophen ([place]) 5-325 mg per tabletIndications:Ga llbladder attack Take [...] CDT - 03/08/2024 4:24 AM CDT Emergency [facility] [address] [place] [address] Discharge Disposition: Home Self Care 03/08/2024 Travel from Last 3 Months Immunizations Name Administration Dates Next Due COVID-19 vaccine ([employer] NTech 30mcg/0.3mL) PF, MDV 02/26/2021,02/02/2021 DTP 05/19/2001 [...] 9:45 AM CDT Supervision of other normal PACK TRAIN DRIVER THIN PREP PAP SCREEN IMAGED Routine 03/02/2021 3:00 PM CDT Cervical cancer screening from Last 3 Months or Most Recently Relevant to Health Maintenance Results * ANTI HCV (03/19/2021 9:45 AM CDT) Pathologist [facility] HEPATITIS C ANTIBODY Non-React emelina Non-React emelina 03/19/2021 4:07 PM CDT [facility] TRAL LABORATORY Comment:Antibodies to HCV no t detected; does not exclude the possibility of exposure to HCV. Blood BLOOD SPECIMEN / Unknown Venipuncture / Unknown 03/19/2021 9:45 AM CDT 03/19/2021 9:47 AM CDT Joy Echeverria MD SEND OUTS [facility] LABORATORY [address] * ANTI HIV 1/2 (03/19/2021 9:45 AM CDT) [facility] HIV-1/HIV-2 ANTIBODY Non-Reacti ve Non-Reacti ve 03/19/2021 4:22 PM CDT [facility] TRAL LABORATORY Comment:HIV-1 p24 and HIV-1/ HIV-2 Ab not detected. Blood BLOOD SPECIMEN / Unknown Venipuncture / Unknown 03/19/2021 9:45 AM CDT 03/19/2021 9:47 AM CDT Joy Echeverria MD [facility] [address] * PACK TRAIN DRIVER THIN PREP PAP SCREEN IMAGED (03/02/2021 3:00 PM CDT) [facility] Case Report Gynecologic Cytology Report ? Case: [id number] ? Authorizing Provider: ??Joy Echeverria MD ??Collected: ? 03/02/2021 1500 ? Ordering Location: ? [email or web address] [place] ?Received: ?03/02/2021 1526 ? Clinic ? First Screen: ?Phuong German ? Specimen: ?PACK TRAIN DRIVER ThinPrep Vial Screening, Cervical ? 03/14/2021 2:50 PM CDT [facility] LABORATORY-C ENTRAL LABORATORY INTERPRETATION/ RESULT NEGATIVE FOR INTRAEPITHELIAL LESION OR MALIGNANCY (NIL) (none) 03/14/2021 2:50 PM CDT [facility]OR[facility]-C ENTRAL LABORATORY IMEN ADEQUACY Satisfactory for evaluation Endocervical component present 03/14/2021 2:50 PM CDT [facility]-C ENTRAL LABORATORY HPV REQUEST HPV if ASCUS 03/14/2021 2:[address] [facility] LABORATORY Date of LMP 01/29/2021 03/14/2021 2:50 PM CDT [facility] ENTRTX LABORATORY Last Pap Date unknown 03/14/2021 2:50 PM CDT [facility]TX LABORATORY Last Pap Result NIL 2:50 PM CDT [facility]- ENTRAL LABORATORY Abnormal Pap or [place] Bx in last 5 years No 03/14/2021 2:50 PM CDT [facility] Menstrual Status Regular Periods 03/14/2021 2:50 PM CDT [facility] ENTRAL LABORATORY [place] Bx Done Today No 03/14/2021 2:50 PM CDT [facility] EN[facility]TX LABORATORY Additional Information None given 03/14/2021 2:50 PM CDT [facility] ENTRTX LABORATORY Comment: Cytology is screened at [facility] Laboratory - [address] [address] and [facility] Laboratory - [address] [facility] [place] [address] and [facility] Laboratory - [address] [place] [address] Interpreted at [facility] - [address], [place] [address] Automated Review Successful 03/14/2021 2:50 PM CDT [facility] ENTRTX LABORATORY Comment:Specimen processed s uccessfully by automated recruitment director device, ThinPrep Imaging System, [employer] Note The pap test is a [...] and malignant lesions. 03/14/2021 2:50 PM CDT [facility] LABORATORY Other (Cervical) Non-Blood / Unknown 03/02/2021 3:00 PM CDT 03/02/2021 3:26 PM CDT Joy Echeverria MD PATHOLOGY/CYTOLO GY [facility] LABORATORY [address] [place] [address], from Last 3 Months or Most Recently Relevant to Health Maintenance Care Teams Manufacturing Technology Professor Relationship Specialty Start Date End Date Gage Chavis MD [address] [place] [address] PCP - General Family Practice 05/04/23
--- NOTE | 2024-04-01 14:00 | CRLHL7_ITS ---
For Patients: As a result of the Century Cures Act, medical imaging exams and procedure reports are released immediately into your electronic medical record. You may view this report before your referring provider. If you have questions, please contact your health care provider. INDICATION: Gestational diabetes COMPARISON: 03/22/2024 TECHNIQUE: Real time michael scale imaging of the fetus was performed. Without non-stress testing. FINDINGS: Sonographic imaging demonstrates a single living intrauterine gestation. Fetus demonstrates a regular cardiac rate of 171 beats per minute. Fetus has a vertex position. The amniotic fluid volume appears normal and there is a single deepest pocket measurement of 6.0 cm. The fetus was active and demonstrated normal breathing movements. There was normal flexion and extension of the trunk and extremities. IMPRESSION: Normal biophysical profile score of 8 out of 8. Dictated by Gage Capone MD @ 04/03/2024 7:25:53 PM (Electronically Signed)
== END 2024-04-01 13:52 | disposition home or self-care (01) ==
PROVIDERS: PCP Family Medicine; Visit Provider Obstetrics & Gynecology
DX: O24.419 Gestational diabetes mellitus in pregnancy, unspecified control (principal)
CPT/HCPCS: 76819; 87081; 87653

== ENCOUNTER 2024-04-02 09:42 | Outpatient (CLI) | payer OTHER, SELFPAY ==
--- OUTSIDE RECORDS SUMMARY | 2024-04-02 18:39 | XMS_ITS | Clinical Summary ---
Author Organization [facility] s & [facility] Address [place], [place] [address] Care Team Providers Care Photographic Processor Name Role Phone Gage Chavis MD Primary [...] 90 Tablet 3 03/19/2021 Active HYDROcodone-acetamin ophen ([place]) 5-325 mg per tabletIndications:Ga llbladder attack Take [...] CDT - 03/08/2024 4:24 AM CDT Emergency [facility] [address] [place] [address] Discharge Disposition: Home Self Care 03/08/2024 Travel from Last 3 Months Immunizations Name Administration Dates Next Due COVID-19 vaccine ([employer] NTech 30mcg/0.3mL) PF, MDV 02/26/2021,02/02/2021 DTP 05/19/2001 [...] 9:45 AM CDT Supervision of other normal CAFE COOK THIN PREP PAP SCREEN IMAGED Routine 03/02/2021 3:00 PM CDT Cervical cancer screening from Last 3 Months or Most Recently Relevant to Health Maintenance Results * ANTI HCV (03/19/2021 9:45 AM CDT) Pathologist [facility] HEPATITIS C ANTIBODY Non-React emelina Non-React emelina 03/19/2021 4:07 PM CDT [facility] TRAL LABORATORY Comment:Antibodies to HCV no t detected; does not exclude the possibility of exposure to HCV. Blood BLOOD SPECIMEN / Unknown Venipuncture / Unknown 03/19/2021 9:45 AM CDT 03/19/2021 9:47 AM CDT Joy Echeverria MD SEND OUTS [facility] [employer] LABORATORY [address] * ANTI HIV 1/2 (03/19/2021 9:45 AM CDT) [facility] HIV-1/HIV-2 ANTIBODY Non-Reacti ve Non-Reacti ve 03/19/2021 4:22 PM CDT [facility] TRAL LABORATORY Comment:HIV-1 p24 and HIV-1/ HIV-2 Ab not detected. Blood BLOOD SPECIMEN / Unknown Venipuncture / Unknown 03/19/2021 9:45 AM CDT 03/19/2021 9:47 AM CDT [facility] [address] * CAFE COOK THIN PREP PAP SCREEN IMAGED (03/02/2021 3:00 PM CDT) [facility] Case Report Gynecologic Cytology Report ? Case: [id number] ? Authorizing Provider: ??Joy Echeverria MD ??Collected: ? 03/02/2021 1500 ? Ordering Location: ? [facility] [place] ?Received: ?03/02/2021 1526 ? Clinic ? First Screen: ?Phuong German ? Specimen: ?CAFE COOK ThinPrep Vial Screening, Cervical ? 03/14/2021 2:50 PM CDT [facility] LABORATORY-C ENTRAL LABORATORY INTERPRETATION/ RESULT NEGATIVE FOR INTRAEPITHELIAL LESION OR MALIGNANCY (NIL) (none) 03/14/2021 2:50 PM CDT [facility] LABORAT[facility]-C ENTRAL LABORATORY IMEN ADEQUACY Satisfactory for evaluation Endocervical component present 03/14/2021 2:50 PM CDT [facility] LABORATORY-C ENTRAL LABORATORY HPV REQUEST HPV if ASCUS 03/14/2021 2:50 PM CDT [facility]TRAL LABORATORY Date of LMP 01/29/2021 03/14/2021 2:50 PM CDT [facility] ENTRIL LABORATORY Last Pap Date unknown 03/14/2021 2:50 PM CDT [facility] ENTRIL LABORATORY Last Pap Result NIL 2:50 PM CDT [facility]- ENTRAL LABORATORY Abnormal Pap or [place] Bx in last 5 years No 03/14/2021 2:50 PM CDT [facility] Menstrual Status Regular Periods 03/14/2021 2:50 PM CDT [facility] ENTRAL LABORATORY [place] Bx Done Today No 03/14/2021 2:50 PM CDT [facility] ENTRIL LABORATORY Additional Information None given 03/14/2021 2:50 PM CDT [facility] ENTRIL LABORATORY Comment: Cytology is screened at [facility] Laboratory - [address], [place] [address] and [facility] Laboratory - [address] [facility] [place] [address] and [facility] Laboratory - [address] [place] [address] Interpreted at [facility] Laboratory - [address], [place] [address] Automated Review Successful 03/14/2021 2:50 PM CDT [facility] ENTRIL LABORATORY Comment:Specimen processed s uccessfully by automated steam service inspector device, ThinPrep Imaging System, [employer] Note The pap test is a [...] and malignant lesions. 03/14/2021 2:50 PM CDT [facility] LABORATORY Other (Cervical) Non-Blood / Unknown 03/02/2021 3:00 PM CDT 03/02/2021 3:26 PM CDT Joy Echeverria MD PATHOLOGY/CYTOLO GY [facility] LABORATORY [address] [place] [address], from Last 3 Months or Most Recently Relevant to Health Maintenance Care Teams Photographic Processor Relationship Specialty Start Date End Date Gage Chavis MD [address] [place] [address] PCP - General Family Practice 05/04/23
== END 2024-04-02 09:43 | disposition home or self-care (01) ==
LOC: NFLDREF 18:38
PROVIDERS: PCP Family Medicine; Referring Provider Family Medicine; Visit Provider Obstetrics & Gynecology
DX: N39.0 Urinary tract infection, site not specified (principal)
CPT/HCPCS: 87086

== ENCOUNTER 2024-04-05 09:38 | Outpatient (CLI) | payer OTHER, SELFPAY ==
--- NOTE | 2024-04-05 09:45 | CRLHL7_ITS ---
For Patients: As a result of the Century Cures Act, medical imaging exams and procedure reports are released immediately into your electronic medical record. You may view this report before your referring provider. If you have questions, please contact your health care provider. INDICATION: Gestational diabetes TECHNIQUE: Real time michael scale imaging of the fetus was performed. COMPARISON: 03/08/2024, 03/15/2024, 03/22/2024, 04/01/2024 FINDINGS: Sonographic imaging demonstrates a single living intrauterine gestation. Fetus demonstrates a regular cardiac rate of 134 beats per minute. Fetus has a vertex position. The placenta lies anteriorly. Amniotic fluid volume appears normal and there is a single deepest pocket of 6.9 cm. The estimated weight is 2798gm which lies at the 45th %. On the prior OB ultrasound dated 03/08/2024 the estimated weight was at the 17th percentile. BPD 3rd percentile. HC is 28th percentile. AC 72nd percentile. FL is 27th percentile. The fetus was active and demonstrated normal breathing movements. There was normal flexion and extension of the trunk and extremities. IMPRESSION: Normal biophysical profile score 8/8. Sonographic gestational age 35 weeks 3 days and a sonographic due date 05/07/2024. Sonographic age 5 days behind the clinical age. Estimated weight 45th percentile. Abdominal circumference 72nd percentile. Dictated by Gage Capone MD @ 04/06/2024 11:59:54 AM (Electronically Signed)
== END 2024-04-05 09:39 | disposition home or self-care (01) ==
LOC: US 09:38
PROVIDERS: PCP Family Medicine; Visit Provider Obstetrics & Gynecology
DX: O24.419 Gestational diabetes mellitus in pregnancy, unspecified control (principal); Z3A.35 35 weeks gestation of pregnancy
CPT/HCPCS: 76816; 76819

== ENCOUNTER 2024-04-12 09:39 | Outpatient (CLI) | payer OTHER, SELFPAY ==
--- OUTSIDE RECORDS SUMMARY | 2024-04-12 09:41 | XMS_ITS | Clinical Summary ---
Author Organization [facility] s & [facility] Address [place], [place] [address] Care Team Providers Care Regulatory Compliance Manager Name Role Phone Gage Chavis MD Primary [...] 90 Tablet 3 03/19/2021 Active HYDROcodone-acetamin ophen ([place]) 5-325 mg per tabletIndications:Ga llbladder attack Take [...] CDT - 03/08/2024 4:24 AM CDT Emergency [facility] [address] [place] [address] Discharge Disposition: Home Self Care 03/08/2024 Travel from Last 3 Months Immunizations Name Administration Dates Next Due COVID-19 vaccine ([employer] NTech 30mcg/0.3mL) PF, MDV 02/26/2021,02/02/2021 DTP 05/19/2001 [...] 9:45 AM CDT Supervision of other normal VOLLEYBALL REFEREE THIN PREP PAP SCREEN IMAGED Routine 03/02/2021 3:00 PM CDT Cervical cancer screening from Last 3 Months or Most Recently Relevant to Health Maintenance Results * ANTI HCV (03/19/2021 9:45 AM CDT) Pathologist [facility] HEPATITIS C ANTIBODY Non-React emelina Non-React emelina 03/19/2021 4:07 PM CDT [facility] TRAL LABORATORY Comment:Antibodies to HCV no t detected; does not exclude the possibility of exposure to HCV. Blood BLOOD SPECIMEN / Unknown Venipuncture / Unknown 03/19/2021 9:45 AM CDT 03/19/2021 9:47 AM CDT Joy Echeverria MD SEND OUTS [facility] [employer] LABORATORY [address] * ANTI HIV 1/2 (03/19/2021 9:45 AM CDT) [facility] HIV-1/HIV-2 ANTIBODY Non-Reacti ve Non-Reacti ve 03/19/2021 4:22 PM CDT [facility] TRAL LABORATORY Comment:HIV-1 p24 and HIV-1/ HIV-2 Ab not detected. Blood BLOOD SPECIMEN / Unknown Venipuncture / Unknown 03/19/2021 9:45 AM CDT 03/19/2021 9:47 AM CDT Joy Echeverria MD [facility] [address] * VOLLEYBALL REFEREE THIN PREP PAP SCREEN IMAGED (03/02/2021 3:00 PM CDT) [facility] Case Report Gynecologic Cytology Report ? Case: [id number] ? Authorizing Provider: ??Joy Echeverria MD ??Collected: ? 03/02/2021 1500 ? Ordering Location: ? [facility] ?Received: ?03/02/2021 1526 ? Clinic ? First Screen: ?Phuong German ? Specimen: ?VOLLEYBALL REFEREE ThinPrep Vial Screening, Cervical ? 03/14/2021 2:50 PM CDT [facility] LABORATORY-C ENTRAL LABORATORY INTERPRETATION/ RESULT NEGATIVE FOR INTRAEPITHELIAL LESION OR MALIGNANCY (NIL) (none) 03/14/2021 2:50 PM CDT [facility] LABORATORY-C ENTRAL LABORATORY IMEN ADEQUACY Satisfactory for evaluation Endocervical component present 03/14/2021 2:50 PM CDT [facility] LABORATORY-C ENTRAL LABORATORY HPV REQUEST HPV if ASCUS 03/14/2021 2:50 PM CDT [facility] ENTRAL LABORATORY Date of LMP 01/29/2021 03/14/2021 2:50 PM CDT [facility] ENTRKS LABORATORY Last Pap Date unknown 03/14/2021 2:50 PM CDT [facility] ENTRKS LABORATORY Last Pap Result NIL 2:50 PM CDT [facility]- ENTRAL LABORATORY Abnormal Pap or [place] Bx in last 5 years No 03/14/2021 2:50 PM CDT [facility] Menstrual Status Regular Periods 03/14/2021 2:50 PM CDT [facility] ENTRAL LABORATORY [place] Bx Done Today No 03/14/2021 2:50 PM CDT [facility] ENTRKS LABORATORY Additional Information None given 03/14/2021 2:50 PM CDT [facility] ENTRKS LABORATORY Comment: Cytology is screened at [facility] Laboratory - [address] [address] and [facility] Laboratory - [address] [place] [address] and [facility] Laboratory - [address] [place] [address] [facility] Laboratory - [address], [place] [address] Automated Review Successful 03/14/2021 2:50 PM CDT [facility] ENTRKS LABORATORY Comment:Specimen processed s uccessfully by automated navy diver device, ThinPrep Imaging System, [employer] Note The pap test is a [...] and malignant lesions. 03/14/2021 2:50 PM CDT [facility] LABORATORY Other (Cervical) Non-Blood / Unknown 03/02/2021 3:00 PM CDT 03/02/2021 3:26 PM CDT Joy Echeverria MD PATHOLOGY/CYTOLO GY [facility]ORATORY [address] [place] [address], from Last 3 Months or Most Recently Relevant to Health Maintenance Care Teams Regulatory Compliance Manager Relationship Specialty Start Date End Date Gage Chavis MD [address] [place] [address] PCP - General Family Practice 05/04/23
--- NOTE | 2024-04-12 09:45 | CRLHL7_ITS ---
For Patients: As a result of the Century Cures Act, medical imaging exams and procedure reports are released immediately into your electronic medical record. You may view this report before your referring provider. If you have questions, please contact your health care provider. INDICATION: Gestational Diabetes Mellitus COMPARISON: 04/05/2024 TECHNIQUE: Real time michael scale imaging of the fetus was performed. Without non-stress testing. FINDINGS: Sonographic imaging demonstrates a single living intrauterine gestation. Fetus demonstrates a regular cardiac rate of 159 beats per minute. Fetus has a vertex position. The amniotic fluid volume appears normal and there is a single deepest pocket measurement of 5.5 cm. The fetus was active and demonstrated normal breathing movements. There was normal flexion and extension of the trunk and extremities. IMPRESSION: Normal biophysical profile score of 8 out of 8. Dictated by Gage Capone MD @ 04/12/2024 11:00:27 AM (Electronically Signed)
== END 2024-04-12 09:40 | disposition home or self-care (01) ==
LOC: US 09:40
PROVIDERS: PCP Family Medicine; Visit Provider Obstetrics & Gynecology
DX: O24.419 Gestational diabetes mellitus in pregnancy, unspecified control (principal)
CPT/HCPCS: 76819

== ENCOUNTER 2024-04-19 09:37 | Outpatient (CLI) | payer OTHER, SELFPAY ==
--- OUTSIDE RECORDS SUMMARY | 2024-04-19 09:39 | XMS_ITS | Clinical Summary ---
Author Organization [facility] s & [facility]ates Address [place], [place] [address] Care Team Providers Care Ring Attacher Name Role Phone Gage Chavis MD Primary [...] 90 Tablet 3 03/19/2021 Active HYDROcodone-acetamin ophen ([place]) 5-325 mg per tabletIndications:Ga llbladder attack Take [...] [facility] [address] [place] [address] Discharge Disposition: Home Self Care 03/08/2024 Travel from Last 3 Months Immunizations Name Administration Dates Next Due COVID-19 vaccine ([employer] NTech 30mcg/0.3mL) PF, MDV 02/26/2021,02/02/2021 DTP 05/19/2001 [...] 9:45 AM CDT Supervision of other normal TITLE I DIRECTOR THIN PREP PAP SCREEN IMAGED Routine 03/02/2021 3:00 PM CDT Cervical cancer screening from Last 3 Months or Most Recently Relevant to Health Maintenance Results * ANTI HCV (03/19/2021 9:45 AM CDT) Pathologist [facility] HEPATITIS C ANTIBODY Non-React emelina Non-React emelina 03/19/2021 4:07 PM CDT [facility] TRAL LABORATORY Comment:Antibodies to HCV no t detected; does not exclude the possibility of exposure to HCV. Blood BLOOD SPECIMEN / Unknown Venipuncture / Unknown 03/19/2021 9:45 AM CDT 03/19/2021 9:47 AM CDT Joy Echeverria MD SEND OUTS [facility] [employer] LABORATORY [address] * ANTI HIV 1/2 (03/19/2021 9:45 AM CDT) [facility] HIV-1/HIV-2 ANTIBODY Non-Reacti ve Non-Reacti ve 03/19/2021 4:22 PM CDT [facility] TRAL LABORATORY Comment:HIV-1 p24 and HIV-1/ HIV-2 Ab not detected. Blood BLOOD SPECIMEN / Unknown Venipuncture / Unknown 03/19/2021 9:45 AM CDT 03/19/2021 9:47 AM CDT Joy Echeverria MD [facility] [address] * TITLE I DIRECTOR THIN PREP PAP SCREEN IMAGED (03/02/2021 3:00 PM CDT) [facility] Case Report Gynecologic Cytology Report ? Case: [id number] ? Authorizing Provider: ??Joy Echeverria MD ??Collected: ? 03/02/2021 1500 ? Ordering Location: ? [employer] [facility] ?Received: ?03/02/2021 1526 ? Clinic ? First Screen: ?Phuong German ? Specimen: ?TITLE I DIRECTOR ThinPrep Vial Screening, Cervical ? 03/14/2021 2:50 PM CDT [facility] LABORATORY-C ENTRAL LABORATORY INTERPRETATION/ RESULT NEGATIVE FOR INTRAEPITHELIAL LESION OR MALIGNANCY (NIL) (none) 03/14/2021 2:50 PM CDT [facility] LABORATORY-C ENTRAL LABORATORY IMEN ADEQUACY Satisfactory for evaluation Endocervical component present 03/14/2021 2:50 PM CDT [facility] LABORATORY-C ENTRAL LABORATORY HPV REQUEST HPV if ASCUS 03/14/2021 2:50 PM CDT [facility] ENTRAL LABORATORY Date of LMP 01/29/2021 03/14/2021 2:50 PM CDT [facility] ENTRID LABORATORY Last Pap Date unknown 03/14/2021 2:50 PM CDT [facility] ENTRID LABORATORY Last Pap Result NIL 2:50 PM CDT [facility]- ENTRAL LABORATORY Abnormal Pap or [place] Bx in last 5 years No 03/14/2021 2:50 PM CDT [facility] Menstrual Status Regular Periods 03/14/2021 2:50 PM CDT [facility] ENTRAL LABORATORY [place] Bx Done Today No 03/14/2021 2:50 PM CDT [facility] ENTRID LABORATORY Additional Information None given 03/14/2021 2:50 PM CDT [facility] ENTRID LABORATORY Comment: Cytology is screened at [facility] Laboratory - [address] [address] and [facility] Laboratory - [address] [facility] [place] [address] and [employer] Laboratory - [address] [place] [address] Interpreted at [facility] Laboratory - [address], [place] [address] Automated Review Successful 03/14/2021 2:50 PM CDT [facility] ENTRID LABORATORY Comment:Specimen processed s uccessfully by automated beater out leveling machine device, ThinPrep Imaging System, [employer] Note The pap test is a [...] and malignant lesions. 03/14/2021 2:50 PM CDT [facility] LABORATORY Other (Cervical) Non-Blood / Unknown 03/02/2021 3:00 PM CDT 03/02/2021 3:26 PM CDT Joy Echeverria MD PATHOLOGY/CYTOLO GY [facility] LABORATORY [address] [place] [address], from Last 3 Months or Most Recently Relevant to Health Maintenance Care Teams Ring Attacher Relationship Specialty Start Date End Date Gage Chavis MD [address] [place] [address] PCP - General Family Practice 05/04/23
--- NOTE | 2024-04-19 09:45 | CRLHL7_ITS ---
For Patients: As a result of the Century Cures Act, medical imaging exams and procedure reports are released immediately into your electronic medical record. You may view this report before your referring provider. If you have questions, please contact your health care provider. INDICATION: GDM COMPARISON: 04/12/2024 TECHNIQUE: Real time michael scale imaging of the fetus was performed. Without non-stress testing. FINDINGS: Sonographic imaging demonstrates a single living intrauterine gestation. Fetus demonstrates a regular cardiac rate of 141 beats per minute. Fetus has a vertex position. The amniotic fluid volume appears normal and there is a single deepest pocket measurement of 6.5 cm. The fetus was active and demonstrated normal breathing movements. There was normal flexion and extension of the trunk and extremities. IMPRESSION: Normal biophysical profile score of 8 out of 8. Dictated by Gage Capone MD @ 04/19/2024 10:52:51 AM (Electronically Signed)
== END 2024-04-19 09:38 | disposition home or self-care (01) ==
LOC: US 09:37
PROVIDERS: PCP Family Medicine; Visit Provider Obstetrics & Gynecology
DX: O24.419 Gestational diabetes mellitus in pregnancy, unspecified control (principal)
CPT/HCPCS: 76819

== ENCOUNTER 2024-04-25 16:11 | Inpatient (IN) | payer OTHER, SELFPAY ==
--- OUTSIDE RECORDS SUMMARY | 2024-04-25 16:15 | XMS_ITS | Clinical Summary ---
Author Organization [facility] Address [place], [place] [address] Care Team Providers Care Customer Development Representative Name Role Phone Gage Chavis MD Primary [...] 90 Tablet 3 03/19/2021 Active HYDROcodone-acetamin ophen (Union) 5-325 mg per tabletIndications:Ga llbladder attack Take [...] [facility] [address] [place] [address] Discharge Disposition: Home Self Care 03/08/2024 Travel from Last 3 Months Immunizations Name Administration Dates Next Due COVID-19 vaccine (Trusight NTech 30mcg/0.3mL) PF, MDV 02/26/2021,02/02/2021 DTP 05/19/2001 [...] 9:45 AM CDT Supervision of other normal CONFIGURATION MANAGEMENT ANALYST THIN PREP PAP SCREEN IMAGED Routine 03/02/2021 3:00 PM CDT Cervical cancer screening from Last 3 Months or Most Recently Relevant to Health Maintenance Results * ANTI HCV (03/19/2021 9:45 AM CDT) Pathologist [facility] HEPATITIS C ANTIBODY Non-React emelina Non-React emelina 03/19/2021 4:07 PM CDT [facility] TRAL LABORATORY Comment:Antibodies to HCV no t detected; does not exclude the possibility of exposure to HCV. Blood BLOOD SPECIMEN / Unknown Venipuncture / Unknown 03/19/2021 9:45 AM CDT 03/19/2021 9:47 AM CDT Joy Echeverria MD SEND OUTS [facility] [address] * ANTI HIV 1/2 (03/19/2021 9:45 AM CDT) [facility] HIV-1/HIV-2 ANTIBODY Non-Reacti ve Non-Reacti ve 03/19/2021 4:22 PM CDT [facility] TR[facility] Comment:HIV-1 p24 and HIV-1/ HIV-2 Ab not detected. Blood BLOOD SPECIMEN / Unknown Venipuncture / Unknown 03/19/2021 9:45 AM CDT 03/19/2021 9:47 AM CDT Joy Echeverria MD [facility] [address] * CONFIGURATION MANAGEMENT ANALYST THIN PREP PAP SCREEN IMAGED (03/02/2021 3:00 PM CDT) [facility] Case Report Gynecologic Cytology Report ? Case: [id number] ? Authorizing Provider: ??oJy Echeverria MD ??Collected: ? 03/02/2021 1500 ? Ordering Location: ? [facility] [facility] ?Received: ?03/02/2021 1526 ? Clinic ? First Screen: ?Phuong German ? Specimen: ?CONFIGURATION MANAGEMENT ANALYST ThinPrep Vial Screening, Cervical ? 03/14/2021 2:50 PM CDT [facility]-C ENTRAL LABORATORY INTERPRETATION/ RESULT NEGATIVE FOR INTRAEPITHELIAL LESION OR MALIGNANCY (NIL) (none) 03/14/2021 2:50 PM CDT [facility] EN[facility]AL LAB[facility]AT[facility] IMEN ADEQUACY Satisfactory for evaluation Endocervical component present 03/14/2021 2:50 PM CDT [facility] EN[facility]AL LAB[facility]AT[facility] HPV REQUEST HPV if ASCUS 03/14/2021 2:50 PM CDT [facility] Date of LMP 01/29/2021 03/14/2021 2:50 PM CDT [facility] Last Pap Date unknown 03/14/2021 2:50 PM CDT [facility] Last Pap Result NIL 2:50 PM CDT [facility]- ENTRAL LABORATORY Abnormal Pap or Independence Bx in last 5 years No 03/14/2021 2:50 PM CDT [facility] Menstrual Status Regular Periods 03/14/2021 2:50 PM CDT [facility] ENTRAL LAB[facility]ATORY [place] Bx Done Today No 03/14/2021 2:50 PM CDT [facility] Additional Information None given 03/14/2021 2:50 PM CDT [facility] Comment: Cytology is screened at [facility] - [address] [address] and [facility] - [address] [place] [address] and [facility] - [address] [place] [address] Interpreted at [facility] - [address], [place] [address] Automated Review Successful 03/14/2021 2:50 PM CDT [facility] Comment:Specimen processed s uccessfully by automated postal worker device, [employer] Imaging System, [email or web address] Note The pap test is a [...] and malignant lesions. 03/14/2021 2:50 PM CDT [facility] Other (Cervical) Non-Blood / Unknown 03/02/2021 3:00 PM CDT 03/02/2021 3:26 PM CDT Joy Echeverria MD PATHOLOGY/[facility]OL[facility] [address] [place] [address], from Last 3 Months or Most Recently Relevant to Health Maintenance Care Teams Customer Development Representative Relationship Specialty Start Date End Date Gage Chavis MD [address] [place] [address] PCP - General Family Practice 05/04/23
[2024-04-25 16:44] VITALS: BMI 36.0
[2024-04-25 17:09] VITALS: BP 111/67; PULSE 90
--- NOTE | 2024-04-25 18:17 | P.LDBA_ITS ---
Subjective History of Present Illness Time Seen by Provider: 18:00 Date Seen: 04/25/24 Narrative: Patient is being admitted to Labor and Delivery for cervical ripening and induction of labor secondary to GDMA2. She is a 28 year old at 39 0/7 weeks gestation. Her full history and physical was dictated by Dr. Irizarry on 04/12/2024. Please see this for details. Fetus is active. Denies contractions, vaginal bleeding, unusual vaginal discharge, leakage of fluid, abdominal pain, visual changes, increased swelling. Specific Issues/Plans Spouse: Tenisha. Son: Robinson. Baby: [place]. 1. History of GDM requiring insulin & GDMA2 in current * Hemoglobin A1c: 5.5 * Early 1 hour GTT at 16-20 weeks 11/24/2023: 183 * 3 hour GTT 11/28/2023: Fasting 96, 1 hour 211, 2 hour 142, 3 hour 136 * 12/22/2023: 8 of 10 fasting elevated referred to December for insulin initiation * GDMA2 * 12/31/2023: 12 units NPH at at bedtime. She will send blood sugar recordings through the portal weekly to December until next MD visit. * 01/08: increase to 14 units * 01/18: increase to 16 u NPH QHS * 02/01: 50% fasting remain elevated, PP all normal. increase to 18U NPH qhs * 02/26: increased to 20U NPH Qhs, * 03/03: increased to 22u NPH QHS * 03/08: increased to 26u NPH QHS * Growth ultrasound q.4 weeks starting at 32 weeks * Twice weekly testing alternating BPP/NST starting at 32 weeks * Delivery recommended at 39-39 6/7 if adequately controlled blood sugars. 2. Obesity, BMI 34.0 3. Migraines, infrequent, no aura 4. Rubella nonimmune MMR 5. Hep B immunity indeterminate IMAGING 09/30/2023: 9 weeks, 2 days by CRL with sonographic MAGI 05/02/2024. Subchorionic hemorrhage measuring 3.3 cm in greatest dimension. 12/22/2023: Anterior placenta without previa, normal fluid, SDP 5.5, EFW 60%, AC 6%. Incomplete visualization of the spine, heart, and face due to position. Otherwise normal anatomy. 12/29/2023: Normal heart, spine, and facial anatomy 03/08/2024 32wks: Vertex, SDP 4.1 cm, EFW 1744 g, 3 lb 4 oz, 17%. BPD 12%, HC 4%, AC 26%, FL 18% 04/05/2024 36 wks: Vertex, SDP 6.9 cm, EFW 2798 g (45%), AC 72% Covid: given 09/30/23 Flu: 07/2023 Rhogam: A positive Tdap: 02/17/24 32wk PHQ/KENNETH: 03/01/24 34wk Hgb: 03/22/2024 (11.6) 36wk GBS:04/01/24 Negative OB - Problem Based A/P Additional Plan (1) GDM, class A2: Status: Acute Plan: Half the NPH insulin dose tonight (13 units). Blood sugar monitoring per protocol. (2) Encounter for induction of labor: Status: Acute Delivery/Labor/Induction Plan Plan: induction Induction method: Intracervical balloon catheter (Start slow pitocin infusion at midnight) OB Result Labs Blood Type: A (+) positive Rubella: nonimmune (indeterminate) RPR/VDLR: nonreactive GBS Status: negative HBsAG: negative OB Exam Physical Exam Vital signs: Pulse BP 90 111/67 04/25/24 17:09 04/25/24 17:09 Detailed Labor and Delivery Exam Patient Gravid: Yes Dilation (cm): 1 Effacement (%): 75 Cervix position: posterior Consistency: medium Cervical ripeness score: 5 Contraction Frequency: none Fetus (Single) Station: -2
[2024-04-25] MEDS: INSULIN ASPART 100 UNIT/ML SUBCUT (20:07)
[2024-04-25 21:55] LABS: Basophils Absolute Auto 0.01 K/uL (0.00-0.30); Basophils Percent Auto 0.1 % (0.0-3.0); Eosinophils Absolute Auto 0.05 K/uL (0.00-0.50); Eosinophils Percent Auto 0.6 % (0.0-7.0); Hematocrit 37.6 % (33.0-51.0); Hemoglobin* 11.9 gm/dL (12.0-16.0); Immature Granulocytes Abs Auto 0.02 K/uL (0.00-0.30); Immature Granulocytes Pct Auto 0.2 %; Lymphocytes Absolute Auto 1.82 K/uL (0.90-2.90); Lymphocytes Percent Auto 21.2 % (20-44); Mean Corpuscular HGB Conc 32 gm/dL (32-36); Mean Corpuscular Hemoglobin 28 pg (26-34); Mean Corpuscular Volume 87 fL (80-100); Monocytes Percent Auto 5.8 % (0.0-11.0); Neutrophils Percent Auto 72.1 % (42.0-72.0); Platelet Count* 119 K/uL (140-440); RDW Coefficient of Variation % 16.1 % (11.5-15.5); Red Blood Count 4.33 m/uL (4.00-5.20)
[2024-04-25 21:56] LABS: Slide Review Reflex No
[2024-04-25] MEDS: INSULIN NPH 100 UNIT/ML 13 UNIT SUBCUT (21:56)
[2024-04-25] MEDS: hydrOXYzine pamoate 25 MG CAPSULE 100 MG PO (21:59)
[2024-04-25 22:00] VITALS: BP 107/53; PULSE 91; TEMP 36.6
[2024-04-25] MEDS: MORPHINE 10 MG/ML inj IM (22:05)
[2024-04-26] VITALS (33 sets, daily range): BP systolic 111–158; BP diastolic 62–100; PULSE 71–100; RESP 14–16; TEMP 36.4–36.9; O2SAT 91–96
[2024-04-26] MEDS: OXYTOCIN 30 unit/500 ML in NS 30 UNIT/500 ML BAG IVPB (00:31)
[2024-04-26] MEDS: LACTATED RINGERS 1000 ML 1,000 ML 125 ML IV ×2 (00:31→08:24)
--- NOTE | 2024-04-26 07:56 | P.OBPN_ITS ---
Subjective Time Seen by Provider: 07:56 Date Seen: 04/26/24 Narrative: Subjective: Patient is comfortable w/ contractions. Pitocin: 8 milliunits/minute. Verbal consent obtained for AROM. Vital signs: Per electronic medical record. EFM: Baseline 140s, positive accelerations, negative decelerations, my variability, reactive. Category 1. [place]: Contractions every 2-4 minutes. SVE: 5 cm/50 %/-3. AROM occurred with a large amount of clear fluid Assessment: 28-year-old 2 para 1 at 39 weeks 0 days gestation undergoing induction of labor for GDM A2 on insulin Plan: 1. Continue Pitocin per labor induction protocol. 2. Considering epidural for labor analgesia 3. Expect vaginal delivery. 4. GBS negative 5. Blood type: A positive Objective Vital Signs: Last Vital Signs Temp 98.1 F 04/26/24 03:22 Pulse 75 04/26/24 03:22 BP 121/72 04/26/24 03:22 Assessment Station: -2
[2024-04-26] MEDS: BUPIVACAINE 0.25% PF 10 ML 10 ML ML EPIDURAL (09:07)
[2024-04-26] MEDS: ROPIVACAINE 0.2% 100 ml 100 ML 12 MG EPIDURAL (09:08)
--- NOTE | 2024-04-26 09:37 | P.ANBPRC_ITS ---
[facility] Medical History (Updated 04/25/24 @ 18:24 by Pauline Vazquez MD) Gastroesophageal reflux disease ?K21.9 - Gastro-esophageal reflux disease without esophagitis (ICD-10) Gestational diabetes mellitus (GDM), delivered ?O24.429 - Gestational diabetes mellitus in childbirth, unspecified control (ICD-10) Surgical History (Updated 04/12/24 @ 10:43 by Betzy Irizarry MD) History of cholecystectomy ?Z90.49 - Acquired absence of other specified parts of digestive tract (ICD- 10) Vaginal delivery ?O80 - Encounter for full-term uncomplicated delivery (ICD-10) Family History Father Diabetes Social History (Updated 04/12/24 @ 10:44 by Betzy Irizarry MD) Narrative: Lives in [place] with and son. [id number] parent. Occupation: Unemployed. Marital status: . Yazdanism/cultural needs: no. Chemical or radiation exposure: no. Pre- tobacco use: no. Pre- alcohol use: no. Current tobacco use: no. Current alcohol use: no. Recreational drug use: no. Dietary restrictions: no. Blood transfusion acceptable in an emergency: yes. PSYCHOSOCIAL HISTORY: History of depression or currently depressed: no. Current or past physical, emotional, or sexual mistreatment: no. Problems that will make it hard to make it to appointments: no. What is your current living situation?: I presently have a place to live Problems where you live: no known problems In the past 12 months, utilities in danger of being shut off: no In past 12 months, lack of transportation kept you from medical appts, meetings, work, or getting things needed for daily living: no In the past 12 mos, have been you worried that your food would run out before you had money to buy more?: never true In the past 12 mos, the food you bought just didn't last and you didn't have money to buy more?: never true Smoking Status: Never smoker How often do you have a drink containing alcohol: never AUDIT-C Alcohol total score: 0 Non-prescribed substance use: denies use Caffeine: Yes (2c/day) How often does anyone, including family, friends and others, physically hurt you : never How often does anyone, including family, friends and others, insult or talk down to you: never How often does anyone, including family, friends and others, threaten you with harm: never How often does anyone, including family, friends and others, scream or curse at you: never Little interest or pleasure in doing things: not at all Feeling down, depressed, or hopeless: not at all Meds Home Medications and Allergies Home Medications ?Medication ?Instructions ?Recorded ?Confirmed ?Type vits 75-iron 28 mg-folic 1 pkg PO ONCE 08/04/23 04/25/24 History acid 800 mcg-omega3 440 mg oral pack (One Daily ) acetaminophen 500 mg tablet 1,000 mg PO Q6H PRN 12/22/23 04/25/24 History (Tylenol Extra Strength) calcium carbonate (Tums) 200 mg PO BID PRN 12/22/23 04/25/24 History insulin NPH isoph U-100 human 100 26 unit subcut .hs 04/25/24 04/25/24 History unit/mL subcutaneous suspension (Humulin N NPH U-100 Insulin (isophane susp)) Allergies Allergy/AdvReac Type Severity Reaction Status Date / Time No Known Drug Allergies Allergy Verified 04/22/24 14:47 Results Labs Labs: Laboratory Results - last 24 hr 04/25/24 21:50 WBC 8.60 RBC 4.33 Hgb 11.9 L Hct 37.6 MCV 87 MCH 28 MCHC 32 RDW Coeff of Lexis 16.1 H Plt Count 119 L Neut % (Auto) 72.1 H Lymph % (Auto) 21.2 [place] % (Auto) 5.8 Eos % (Auto) 0.6 Baso % (Auto) 0.1 Neut # (Auto) 6.20 Lymph # (Auto) 1.82 [place] # (Auto) 0.50 Eos # (Auto) 0.05 Baso # (Auto) 0.01 Abs Immat Gran (auto) 0.02 Imm/Tot Granulo (auto) 0.2 Blood Type A Positive Antibody Screen NEGATIVE Vital Signs Vital Signs: Last Vital Signs Temp 97.9 F 04/26/24 08:04 Pulse 99 04/26/24 09:32 BP 143/99 H 04/26/24 09:32 Pulse Ox 91 04/26/24 09:05 Weight: 92.249 kg Height: 160.02 cm Anesthesia Procedures Epidural Insertion Patient Location: OB Start Time: 09:00 Stop Time: 09:30 Start Date: 04/26/24 Stop Date: 04/26/24 Reason for Block: procedure for pain Patient Position: sitting Performed By: Nadira Browne Preanesthetic Checklist: IV checked, risks and benefits discussed, monitors and equipment checked, timeout performed and anesthesia consent Prep: chlorhexidine gluconate Monitoring: blood pressure monitoring, continuous pulse oximetry and heart rate Approach: midline Vertebral Space: lumbar (1-5) Epidural Technique: KAITY saline Needle Type: Tuohy needle Injection Technique: continuous catheter Needle gauge: 17 Needle Length (cm): 10 cm Needle Insertion Depth (cm): 8 Catheter Gauge: 19 Catheter Type: multi-orifice Catheter at skin depth (cm): 13 Test Dose Result: negative and lidocaine 1.5% with epinephrine 1 to 200,000
--- NOTE | 2024-04-26 10:04 | W.PM.VAGDEL1 ---
Procedure Delivery date: 04/26/24 Procedure Done: Global Procedure Details: Valeri is a 28 year-old G 2 P 1 now 2 admitted on 04/25/2024 at 4:00 p.m. at 38 Weeks, 6 Days gestation for induction of labor due to GDM A2 on insulin. AROM occurred at 7:50 a.m. on 04/26/2024 with large amount of clear fluid. Labor Analgesia: Epidural Pitocin: Yes Labor onset: 04/26/2024 at 7:50 a.m.. Complete: 04/26/2024 at 9:33 a.m.. Pushin04/26/2024 at 9:35 a.m.. heart tones during second stage were: Category 2 with moderate variability in minimal variable decelerations with contractions with immediate return to baseline. When the patient was 8 cm she was having variable decelerations and on cervix check the umbilical cord was noted to be coming down in front of the vertex. The examiner push the umbilical cord back behind the vertex and soon thereafter the patient was completely dilated pushed to have a baby. The variable decelerations resolved after the umbilical cord was pushed back behind the vertex. At 9:42 a.m. a viable female infant delivered in vertex direct OA presentation over first-degree perineal laceration via spontaneous vaginal delivery. The infant was placed on maternal abdomen. Cord was clamped and cut after a 60 second delay. Nose and mouth were bulb suctioned. Infant weight pending. 9 at 1 minute and 9 at 5 minutes. Shoulder dystocia: No. Nuchal cord: Yes, loose umbilical cord that the baby was delivered through. Also single arm cord and true knot. Placenta delivered spontaneously and complete at 9:51 a.m. with a 3 vessel cord. Laceration(s): First-degree perineal. Repaired using 4-0 Vicryl suture in a running manner. Blood loss: 50 mL. Blood loss measurement type: Quantitative Sponge and needles counts are correct. Specimen: Placenta due to GDM A2 Mother and were stable after delivery. 's name: Pending The patient is planning on breast feeding.
[2024-04-26] MEDS: IBUPROFEN 600 MG TABLET PO ×2 (13:30→19:39)
[2024-04-26] MEDS: ACETAMINOPHEN 500 MG TABLET 1000 MG PO ×2 (16:24→22:32)
[2024-04-26] MEDS: MEASLES,MUMPS,RUBELLA VACC/PF 1 DOSE INJ 1 EACH SUBCUT (18:26)
[2024-04-27] MEDS: IBUPROFEN 600 MG TABLET PO ×4 (01:47→21:00)
[2024-04-27 04:40] VITALS: BP 110/80; PULSE 77; RESP 16; TEMP 36.5; O2SAT 98
[2024-04-27] MEDS: ACETAMINOPHEN 500 MG TABLET 1000 MG PO ×3 (05:16→19:36)
[2024-04-27 06:32] LABS: Hemoglobin* 10.3 gm/dL (12.0-16.0)
[2024-04-27 07:48] VITALS: BP 109/67; PULSE 82; RESP 16; TEMP 36.4; O2SAT 97
--- NOTE | 2024-04-27 10:56 | PM.OBPNVD1 ---
OB - PN:Subj Subjective Date Seen: 04/27/24 Narrative: Valeri is a 28 y.o. who was admitted to [facility] for induction of labor.? She had an uncomplicated NVD.? ?? The patient feels well.? The pain is well controlled with current medications.? She has no new complaints.? She is breast feeding and reports things are going well.? the patient has done well.? Vitals have been stable.? She has remained afebrile.? Has a good appetite, is tolerating a general diet.? She is voiding without difficulty.? She is passing gas and has not had a bowel movement.? She is ambulating and denies any dizziness.? Has Small amount of rubra lochia.? OB - PN: Obj Exam Physical Exam: Vital signs: Temp Pulse Resp BP Pulse Ox O2 Del Method 97.5 F L 82 16 109/67 97 Room Air 04/27/24 07:48 04/27/24 07:48 04/27/24 07:48 04/27/24 07:48 04/27/24 07:48 04/27/24 07:48 Narrative: GENERAL APPEARANCE:? normal affect, alert, no distress? MOOD:? appropriate? HEENT: normocephalic, neck supple, full ROM? CHEST:? Symmetrical chest wall movement.? Normal respiratory effort.? Clear to auscultation ? HEART:? regular rate and rhythm? ABDOMEN:? soft, non-tender. Uterine fundus is firm, 1/U Umbilicus, Midline and is appropriate for the stage of recovery.? Bowel sounds present.? PERINEUM:? intact EXTREMITIES:? normal and trace edema? OB - PN: Obj Data Labs Labs: Laboratory Results - last 24 hr 04/27/24 06:21 Hgb 10.3 L OB - PN: A/P Delivery Assessment and Plan (1) care and examination immediately after delivery: Status: Acute (2) (normal spontaneous vaginal delivery): Status: Acute (3) Lactating mother: Status: Acute (4) GDM, class A2: Status: Acute Plan day: 1 Plan: routine care Comments: G 2 P 2 status post uncomplicated NVD??? 1.? Continue route PP cares? 2.? .? May see if desired? 3.? Anticipate discharge home tomorrow?
[2024-04-27] MEDS: DOCUSATE SODIUM 100 MG CAPSULE PO (12:07)
--- NOTE | 2024-04-27 12:30 | PM.ANPOST ---
Post Anesthesia Note Post Anesthesia Note Patient seen: Inpatient Respiratory Status: adequate Cardiovascular Status: adequate Mental Status: baseline Pain: adequate Temp: baseline Anesthetic awareness: N/A Complications: none Follow care: none
[2024-04-27 16:05] VITALS: BP 114/76; PULSE 76; RESP 16; TEMP 36.7; O2SAT 95
[2024-04-27 20:02] VITALS: BP 136/95; PULSE 76; RESP 16; TEMP 36.5; O2SAT 97
[2024-04-27 22:59] LABS: Rapid Plasma Reagin (RPR) Non Reactive (Non Reactive)
[2024-04-28 00:38] VITALS: BP 132/88; PULSE 78; RESP 16; TEMP 36.7; O2SAT 98
[2024-04-28 05:25] LABS: Glucose Fasting 83 mg/dl (70-95)
[2024-04-28 07:15] LABS: Glucose 2 Hour 113 mg/dl (70-155)
--- NOTE | 2024-04-28 08:28 | P.DS_ITS ---
DS: Providers Provider Date Seen: 04/28/24 Date of admission: 04/25/24 16:11 Primary care physician: Gage Chavis MD Admitting Clinician: Pauline Vazquez MD Attending Physician on discharge: Cindy Meraz MD Date of Discharge: 04/28/24 DS: Diagnosis Discharge Diagnosis (1) care following vaginal delivery: Status: Acute (2) Lactating mother: Status: Acute Exam Narrative: Exam Narrative: GENERAL APPEARANCE:? normal affect, alert, no distress? MOOD:? appropriate? CHEST:? clear to auscultation and percussion? HEART:? regular rate and rhythm? ABDOMEN:? soft, non-tender the uterine fundus is U/2 and is appropriate for the stage of recovery? PERINEUM:? mild edema of the perineum, there is a 1st degree laceration that is healing well.? EXTREMITIES:? normal and no edema? Const: Vital Signs, click to edit/add: Vital Signs - 24 hr 04/27/24 16:05 04/27/24 20:02 04/28/24 00:38 Temperature 98.1 F 97.7 F 98.0 F Pulse Rate [Left P ulse Oximeter] 76 76 78 Respiratory Rate 16 16 16 Blood Pressure [Ri ght Arm] 114/76 136/95 H 132/88 Pulse Oximetry 95 97 98 Oxygen Delivery Me thod Room Air Room Air Room Air Documenting provider has reviewed patient's vital signs: yes OB - DS: Summary Hospital Course Hospital Course: Valeri is a 28 year old G 2 P 2 at 39.2 weeks gestation that was admitted to the Center on 04/25/24 for IOL for GDMA2. She had an vaginal delivery. It was complicated by a partial cord prolapse that was reduced successfully and was able to delivery vaginally without any further difficulties. She delivered a viable female . She is breast feeding and denies concerns with how it is going. the patient has done well. She is planning condoms for contraception. Peripartum Data Infant delivery method: Vaginal Laceration description: Perineal - 1st Degree Episiotomy description: None complications: none [place] Gender: Female Infant Discharge Plan: Home Status at Discharge Functional status at discharge: independent ambulation Overall status at discharge: patient is progressing back to baseline Time Spent with Patient Time attestation: Total time spent providing and/or coordinating discharge services: Discharge Plan Discharge Disposition: Home, Self-Care Date of Admission: 04/25/24 16:11 Primary Care Provider: Gage Chavis Condition: Stable Anticipated Discharge Date/Time: 04/28/24 11:00 Discharge Medications: New docusate sodium 100 mg Capsule 100 mg PO BID PRNQty: 90 0RF Rx Instructions: Take 1-2 tablets daily as needed for constipation. ibuprofen 600 mg Tablet 600 mg PO Q6H PRNQty: 20 0RF Continued One Daily 28-800-440 mg-mcg-mg combo pack 1 pkg PO ONCE calcium carbonate [Tums] 200 mg calcium (500 mg) tablet,chewable 200 mg PO BID PRN acetaminophen [Tylenol Extra Strength] 500 mg tablet 1,000 mg PO Q6H PRN Discontinued Humulin N NPH U-100 Insulin 100 unit/mL suspension 26 unit subcut .hs Rx Instructions: 20 units at bedtime Discharge Orders: Discharge Order (Routine); Ordered 04/28/24 Ordered By: Felecia Arce Patient Education: OB Over the Counter Medication Information, OB Vaginal/Breast Feeding Additional Instructions: Discharge instructions were reviewed with the patient including signs and symptoms of infection and home going medications.? Lifting Restrictions: 20 pounds for 6? weeks? ?? Do not drive while taking narcotic pain meds.? Off Work or School for 6 weeks.? ?? Symptoms to report to doctor:? -Bleeding that saturates more than one pad per hour? -Passing clots larger than the size of a golf ball? -Pain not relieved by prescribed medication? -Fever above 100.4 degrees Fahrenheit? -A foul vaginal odor? -Difficulty in emotions, mood and functions? -Thoughts of hurting yourself and/or ? -Painful, reddened area in your breast? -Any drainage, redness or tenderness in your IV/epidural site? -Severe headache that doesn't improve after taking medications? -Changes in vision, including temporary loss of vision, blurred vision, and/or light sensitivity? -Upper abdominal pain (usually under ribs on the right side)? -Decrease in urination or painful, frequent urinating? -Chest pain? -Shortness of breath? -Tenderness or pain with redness and/swelling in the calf(s) of your leg? ?? Follow Up in clinic in 2 and 6 weeks.? ?? consultation services are available to all mothers and babies for the first year after delivery.? To make an appointment, please call [phone].? Activity Level: Activity as Tolerated Discharge Diet: Regular Follow Up Appointments: [facility] [Provider Group] Forms: MyHealth Info Instructions
[2024-04-28 09:52] VITALS: BP 116/76; PULSE 81; RESP 16; TEMP 36.6; O2SAT 96
--- OUTSIDE RECORDS SUMMARY | 2024-05-06 08:52 | XMS_ITS | Clinical Summary ---
Author Organization [facility] Address [place], [place] [address] Care Team Providers Care Sales Recruiting Coordinator Name Role Phone Gage Chavis MD Primary [...] 90 Tablet 3 03/19/2021 Active HYDROcodone-acetamin ophen ([place]) 5-325 mg per tabletIndications:Ga llbladder attack Take [...] Encounters Date Type Department Care Team Description 04/26/2024 Lab Requisition [facility] [phone] Cindy Meraz MD 03/08/2024 4:07 AM CDT - 03/08/2024 4:24 AM CDT Emergency [facility] [address] [place] [address] Discharge Disposition: Home Self Care 03/08/2024 Travel from Last 3 Months Immunizations Name Administration Dates Next Due COVID-19 vaccine ([employer] NTech 30mcg/0.3mL) PF, MDV 02/26/2021,02/02/2021 DTP 05/19/2001 [...] Procedure Name Priority Date/Time Associated Diagnosis Comments LAB TRACKING EVENT Routine 04/26/2024 9: 42 AM CDT PATH TISSUE EXAM PLACENTA Routine 04/26/2024 9:42 AM CDT ANTI HIV 1/2 Routine 03/19/2021 9:45 AM CDT Supervision of other normal ANTI HCV Routine 03/19/2021 9:45 AM CDT Supervision of other normal DULSER THIN PREP PAP SCREEN IMAGED Routine 03/02/2021 3:00 PM CDT Cervical cancer screening from Last 3 Months or Most Recently Relevant to Health Maintenance Results * LAB TRACKING EVENT (04/26/2024 9:42 AM CDT) Other (Other) Client Collect / Unknown 04/26/2024 9:42 AM CDT 04/26/2024 9:58 PM CDT Cindy Meraz MD LAB BILL O NLY [facility] [address] [place] [phone], * PATH TISSUE EXAM PLACENTA (04/26/2024 9:42 AM CDT) Case Report Pathology Report ?Case: [id number] ? Authorizing Provider: ??Cindy Meraz ?Collected: ? 04/26/2024 0942 ? MD Zainab ? Ordering Location: ? [facility] ?Received: ?04/27/2024 0830 ? Pathologist: ? Arron [place] MD ? Specimen: ?Placenta ? 04/28/2024 4:21 PM CDT [facility] ENTRAL LABORATORY Final Diagnosis A) PLACENTA, VAGINAL DELIVERY: 1. Third trimester cain placenta with the following characteristics: ? a. Weight: 603 grams (90th percentile for gestational age 39 weeks) ? b. Membranes with no significant histologic alterations ?? c. Three vessel umbilical cord with true knot; no venous distension or mural thrombus present ? d. Placental disc without infarcts ? e. Placental disc without intervillous thrombi ? f. Chorionic villi appropriate for gestational age ? g. Villous chorangiosis 2. Negative for chorioamnionitis, funisitis, and villitis 04/28/2024 4:21 PM T [facility]-C ENTRAL LABORATORY Comment True knots in the umbilical cord are uncommon, and are found in less than 0.5% of examined placental specimens. ??In most cases they are not clinically significant. They are more common in male fetuses and monoamnionic twins. ??Associated findings of possible clinical significance include distal (placental side) venous distension or mural thrombi, features which were not seen in this case. Clinical correlation is recommended. Placental features that have been associated with gestational and/or maternal diabetes include an enlarged placenta (seen here), villous immaturity or increased villous vessel density (chorangiosis-see n here).?? These findings are not seen in all placentas from diabetic patients, and may reflect the level of diabetes control. Clinical correlation with the patient's diabetic history is recommended. 04/28/2024 4:21 PM T [facility] LABORATORY-C [facility] Clinical Information 28 yo vaginal delivery at 39 weeks 1 day, live born female 3335 gm. Diabetes 04/28/2024 4:21 PM T [facility] Gross Description A) Received fresh labeled with the patient's name and placenta, is a 603 gram, 22 x 16 x 2.5 cm cain placenta. The surface is blue-michael with normal vasculature. The 53 cm long, 1.0 cm diameter trivascular umbilical cord is eccentrically inserted 4.4 cm from the nearest edge of the placental plate. ??15 cm from the end of the umbilical cord is a 2.5 x 2 x 1.5 cm true knot. The diameter of the umbilical cord adjacent (both and maternal side) to the true knot is 1.0 cm. The extraplacental membranes are mckeon thickened and opaque with marginal insertion. The maternal surface is complete, with smooth rounded contours and minimal loosely adherent clotted blood. ??Sectioning reveals soft, spongy deep reddish-purple parenchyma. ??No masses or lesions are identified. Specimen images have and uploaded Stereoptic Projection Topographer sections are submitted: 1. ?? membranes and insertion 2. ??Random umbilical cord 3. ??Tissue adjacent to true knot (maternal side) 4. ??Section through true knot 5. ??Tissue adjacent to true knot ( side) 6. ??Umbilical cord insertion site 7-8. ??Full-thickness central disc Time and date in formalin: 1151 on 04/27/2024 STN 04/27/2024 04/28/2024 4:21 PM T [facility]-C [facility] Microscopic Description The final diagnosis is based on microscopic examination of appropriate sections of all specimens. 04/28/2024 4:21 PM T [facility] Additional Information Interpreted at [facility] - [address], [place] [address] 04/28/2024 4:21 PM CDT [facility] ENTRAL LABORATORY Tissue SPECIMEN FROM PLACENTA / Unknown 04/26/2024 9:42 AM CDT 04/27/2024 8:30 AM CDT Cindy Meraz MD PATHOLOGY/ CYTOLOGY [facility] [address] [place] [id number], [place] * ANTI HCV (03/19/2021 9:45 AM CDT) HEPATITIS C ANTIBODY Non-React emelina Non-React emelina 03/19/2021 4:07 PM CDT [facility] TRAL LABORATORY Comment:Antibodies to HCV no t detected; does not exclude the possibility of exposure to HCV. Blood BLOOD SPECIMEN / Unknown Venipuncture / Unknown 03/19/2021 9:45 AM CDT 03/19/2021 9:47 AM CDT Joy Echeverria MD SEND OUTS Performing Organization Address City/[facility]/ZIP Co de Phone Number [facility] [address] [place] [id number], [place] * ANTI HIV 1/2 (03/19/2021 9:45 AM CDT) HIV-1/HIV-2 ANTIBODY Non-Reacti ve Non-Reacti ve 03/19/2021 4:22 PM CDT [facility] Comment:HIV-1 p24 and HIV-1/ HIV-2 Ab not detected. Blood BLOOD SPECIMEN / Unknown Venipuncture / Unknown 03/19/2021 9:45 AM CDT 03/19/2021 9:47 AM CDT Joy Echeverria MD [facility] [address] [place] [phone], * DULSER THIN PREP PAP SCREEN IMAGED (03/02/2021 3:00 PM CDT) Case Report Gynecologic Cytology Report ? Case: [id number] ? Authorizing Provider: ??Joy Echeverria MD ??Collected: ? 03/02/2021 1500 ? Ordering Location: ? [facility] [place] ?Received: ?03/02/2021 1526 ? Clinic ? First Screen: ?Phuong German ? Specimen: ?DULSER ThinPrep Vial Screening, Cervical ? 03/14/2021 2:50 PM CDT [facility]-C ENTRAL LABORATORY INTERPRETATION/ RESULT NEGATIVE FOR INTRAEPITHELIAL LESION OR MALIGNANCY (NIL) (none) 03/14/2021 2:50 PM CDT [facility]-C ENTRAL LABORATORY IMEN ADEQUACY Satisfactory for evaluation Endocervical component present 03/14/2021 2:50 PM CDT [facility] ENTRAL LABORATORY HPV REQUEST HPV if ASCUS 03/14/2021 2:50 PM CDT [facility] Date of LMP 01/29/2021 03/14/2021 2:50 PM CDT [facility] ENTRAL LABORATORY Last Pap Date unknown 03/14/2021 2:50 PM CDT [facility] ENTRAL LABORATORY Last Pap Result NIL 2:50 PM CDT [facility]- ENTRAL LABORATORY Abnormal Pap or [place] Bx in last 5 years No 03/14/2021 2:50 PM CDT [facility] ENTRAL LABORATORY Menstrual Status Regular Periods 03/14/2021 2:50 PM CDT [facility] ENTRAL LABORATORY [place] Bx Done Today No 03/14/2021 2:50 PM CDT [facility] ENTR[facility] LAB[facility]ATORY Additional Information None given 03/14/2021 2:50 PM CDT [facility] EN[facility] LAB[facility]ATORY Comment: Cytology is screened at [facility] - [address], [place] [address] and [facility] - [address] [place] [address] and [facility] - [address] [place] [address] Interpreted at [facility] - [address], [place] [address] Automated Review Successful 03/14/2021 2:50 PM CDT [facility] ENTRAL LABORATORY Comment:Specimen processed s uccessfully by automated bike mechanic device, ThinPrep Imaging System, [employer] Note The pap test is a [...] and malignant lesions. 03/14/2021 2:50 PM CDT [facility] LABORAT[facility]-C ENTRAL LABORATORY Other (Cervical) Non-Blood / Unknown 03/02/2021 3:00 PM CDT 03/02/2021 3:26 PM CDT Joy Echeverria MD PATHOLOGY/CYTOLO [facility]ORAT[facility]-CENTRAL LABORATORY [address] [place] [address], from Last 3 Months or Most Recently Relevant to Health Maintenance Care Teams Sales Recruiting Coordinator Relationship Specialty Start Date End Date Gage Chavis MD [address] [place] [address] PCP - General Family Practice 05/04/23
== END 2024-04-28 12:25 | disposition home or self-care (01) | DRG 807 ==
PROVIDERS: Advanced Practice Midwife; Admitting Provider Obstetrics & Gynecology; PCP Family Medicine; Visit Provider Obstetrics & Gynecology
DX: O24.424 Gestational diabetes mellitus in childbirth, insulin controlled (principal); Z37.0 Single live birth; O70.0 First degree perineal laceration during delivery; Z3A.39 39 weeks gestation of pregnancy
CPT/HCPCS: 01967; 36415; 59200; 82947; 82950; 82962; 85018; 85025; 86592; 86850; 86900; 86901; 88307; A9270; J0665; J2270; J2371; J2795; J7120

== ENCOUNTER 2024-06-07 09:45 | Outpatient (CLI) | payer OTHER, SELFPAY ==
--- OUTSIDE RECORDS SUMMARY | 2024-06-07 09:57 | XMS_ITS | Clinical Summary ---
Author Organization [facility] Address [place], [place] [address] Care Team Providers Care Director Experimental Medicine Name Role Phone Gage Chavis MD Primary [...] 90 Tablet 3 03/19/2021 Active HYDROcodone-acetamin ophen ([place]) 5-325 mg per tabletIndications:Ga llbladder attack Take [...] Department Care Team Description 04/26/2024 Lab Requisition [facility] [phone] Cindy Meraz MD 03/08/2024 4:07 AM CDT - 03/08/2024 4:24 AM CDT Emergency [facility] [address] [place] [address] Discharge Disposition: Home Self Care 03/08/2024 Travel from Last 3 Months Immunizations Name Administration Dates Next Due COVID-19 vaccine ([employer]ech 30mcg/0.3mL) PF, MDV 02/26/2021,02/02/2021 DTP 05/19/2001 [...] 9:45 AM CDT Supervision of other normal GYNECOLOGICAL ASSISTANT THIN PREP PAP SCREEN IMAGED Routine 03/02/2021 3:00 PM CDT Cervical cancer screening from Last 3 Months or Most Recently Relevant to Health Maintenance Results * LAB TRACKING EVENT (04/26/2024 9:42 AM CDT) Other (Other) Client Collect / Unknown 04/26/2024 9:42 AM CDT 04/26/2024 9:58 PM CDT Cindy Meraz MD LAB BILL O NLY [facility] LABORATORY-CENTRAL LABORATORY [address] [place] [phone], * PATH TISSUE EXAM PLACENTA (04/26/2024 9:42 AM CDT) Case Report Pathology Report ?Case: [id number] ? Authorizing Provider: ??Cindy Meraz ?Collected: ? 04/26/2024 0942 ? MD Zainab ? Ordering Location: ? [facility] ?Received: ?04/27/2024 0830 ? Pathologist: ? Arron [place] MD ? Specimen: ?Placenta ? 04/28/2024 4:21 PM CDT [facility]-C ENTRAL LABORATORY Final Diagnosis A) PLACENTA, [...] funisitis, and villitis 04/28/2024 4:21 PM T [facility]-C ENTRAL LABORATORY Comment True knots in [...] history is recommended. 04/28/2024 4:21 PM T [facility] LABORATORY-C [facility] Clinical Information 28 yo vaginal delivery at 39 weeks 1 day, live born female 3335 gm. Diabetes 04/28/2024 4:21 PM T [facility] Gross Description A) Received fresh labeled [...] are identified. Specimen images have and uploaded Pattern Chart Writer sections are submitted: 1. ?? membranes and insertion 2. ??Random umbilical cord 3. ??Tissue adjacent to true knot (maternal side) 4. ??Section through true knot 5. ??Tissue adjacent to true knot ( side) 6. ??Umbilical cord insertion site 7-8. ??Full-thickness central disc Time and date in formalin: 1151 on 04/27/2024 STN 04/27/2024 04/28/2024 4:21 PM T [facility]-C [facility] Microscopic Description The final diagnosis is based on microscopic examination of appropriate sections of all specimens. 04/28/2024 4:21 PM T [facility] Additional Information Interpreted at [facility] - [address], [place] [address] 04/28/2024 4:21 PM CDT [facility] ENTRAL LAB[facility]ATORY Tissue SPECIMEN FROM PLACENTA / Unknown 04/26/2024 9:42 AM CDT 04/27/2024 8:30 AM CDT Cindy Meraz MD PATHOLOGY/ CYTOLOGY [facility] [address] [place] [phone], [place] * ANTI HCV (03/19/2021 9:45 AM CDT) HEPATITIS C ANTIBODY Non-React emelina Non-React emelina 03/19/2021 4:07 PM CDT [facility] TRAL LABORATORY Comment:Antibodies to HCV no t detected; does not exclude the possibility of exposure to HCV. Blood BLOOD SPECIMEN / Unknown Venipuncture / Unknown 03/19/2021 9:45 AM CDT 03/19/2021 9:47 AM CDT Joy Echeverria MD SEND OUTS Performing Organization Address City/[facility]/ZIP Co de Phone Number [facility] [address] [place] [phone], [place] * ANTI HIV 1/2 (03/19/2021 9:45 AM CDT) HIV-1/HIV-2 ANTIBODY Non-Reacti ve Non-Reacti ve 03/19/2021 4:22 PM CDT [facility] Comment:HIV-1 p24 and HIV-1/ HIV-2 Ab not detected. Blood BLOOD SPECIMEN / Unknown Venipuncture / Unknown 03/19/2021 9:45 AM CDT 03/19/2021 9:47 AM CDT Joy Echeverria MD SEND OUTS [facility] [address] [place] [phone], * GYNECOLOGICAL ASSISTANT THIN PREP PAP SCREEN IMAGED (03/02/2021 3:00 PM CDT) Case Report Gynecologic Cytology Report ? Case: [id number] ? Authorizing Provider: ??Joy Echeverria MD ??Collected: ? 03/02/2021 1500 ? Ordering Location: ? [facility] [place] ?Received: ?03/02/2021 1526 ? Clinic ? First Screen: ?Phuong German ? Specimen: ?GYNECOLOGICAL ASSISTANT ThinPrep Vial Screening, Cervical ? 03/14/2021 2:50 PM CDT [facility] ENTRAL LABORATORY INTERPRETATION/ RESULT NEGATIVE FOR INTRAEPITHELIAL LESION OR MALIGNANCY (NIL) (none) 03/14/2021 2:50 PM CDT [facility] ENTRAL LABORATORY IMEN ADEQUACY Satisfactory for evaluation Endocervical component present 03/14/2021 2:50 PM CDT [facility] [employer] [facility] ENTRAL LABORATORY HPV REQUEST HPV if ASCUS 03/14/2021 2:50 PM CDT [facility] Date of LMP 01/29/2021 03/14/2021 2:50 PM CDT [facility] ENTRAL LABORATORY Last Pap Date unknown 03/14/2021 2:50 PM CDT [facility] ENTRAL LABORATORY Last Pap Result NIL 2:50 PM CDT [facility]- ENTRAL LABORATORY Abnormal Pap or [place] Bx in last 5 years No 03/14/2021 2:50 PM CDT [facility] ENTRAL LABORATORY Menstrual Status Regular Periods 03/14/2021 2:50 PM CDT [facility] [employer] [facility] ENTRAL LABORATORY [place] Bx Done Today No 03/14/2021 2:50 PM CDT [facility] Credit [employer] [facility] ENTRAL LABORATORY Additional Information None given 03/14/2021 2:50 PM CDT [facility] Credit [facility] [facility] ENTRAL LABORATORY Comment: Cytology is screened at [facility] Laboratory - [address] [address] and [facility] - [address] [place] [address] and [facility] - [address] [place] [address] Interpreted at [facility] - [address], [place] [address] Automated Review Successful 03/14/2021 2:50 PM CDT [facility] ENTRAL LABORATORY Comment:Specimen processed s uccessfully by automated bleach tester device, ThinPrep Imaging System, [employer] Note The pap test is a [...] and malignant lesions. 03/14/2021 2:50 PM CDT [facility] LABORAT[facility]-C ENTRAL LABORATORY Other (Cervical) Non-Blood / Unknown 03/02/2021 3:00 PM CDT 03/02/2021 3:26 PM CDT Joy Echeverria MD PATHOLOGY/CYTOLO GY [facility] LABORAT[facility]-CENTRAL LABORATORY [address] [place] [address], from Last 3 Months or Most Recently Relevant to Health Maintenance Care Teams Director Experimental Medicine Relationship Specialty Start Date End Date Gage Chavis MD [address] [place] [address] PCP - General Family Practice 05/04/23
[2024-06-11 09:44] LABS: HPV Source Cervical; HPV, High Risk by TMA Not Detected
== END 2024-06-07 09:46 | disposition home or self-care (01) ==
PROVIDERS: PCP Family Medicine; Visit Provider Advanced Practice Midwife
DX: Z12.4 Encounter for screening for malignant neoplasm of cervix (principal); Z39.2 Encounter for routine postpartum follow-up; Z11.51 Encounter for screening for human papillomavirus (HPV)
CPT/HCPCS: 87624; 87625; 88141; 88142

== ENCOUNTER 2025-08-16 15:49 | Outpatient (CLI) | payer OTHER, SELFPAY ==
--- NOTE | 2025-08-16 16:00 | CRLHL7_ITS ---
For Patients: As a result of the Century Cures Act, medical imaging exams and procedure reports are released immediately into your electronic medical record. You may view this report before your referring provider. If you have questions, please contact your health care provider. LMP: 06/18/2025. MAGI by LMP: 03/25/2026. GA: 8w, 3d. INDICATION: Dating and viability. CRL: 1.8 cm, 9w 2d. MAGI 03/26/2026. FHR: 167 bpm. GESTATIONAL SAC: 2.9 cm, appears within normal limits. YOLK SAC: 2.8 mm, appears within normal limits. RIGHT OVARY: 3.1 x 1.3 x 2.3 cm. LEFT OVARY: 3.3 x 2.2 x 2.2 cm, O`CLOCK. IMPRESSION: 1. Single living intrauterine measures 8 weeks 2 days with sonographic due date 03/26/2026. 2. Corpus luteal cyst left ovary measures 2.0 x 1.9 x 1.9 cm. 3. Subchorionic hemorrhage measures 2.8 x 1.6 x 2.7 cm. Gage Capone M.D. Diagnostic Radiologist [email or web address] bM/Dictated by: Gage Capone MD @ 08/16/2025 4:42:00 PM (Electronically Signed)
== END 2025-08-16 15:50 | disposition home or self-care (01) ==
LOC: US 15:50
PROVIDERS: PCP Family Medicine; Visit Provider Registered Nurse
DX: O34.81 Maternal care for other abnormalities of pelvic organs, first trimester (principal); N83.12 Corpus luteum cyst of left ovary; O20.9 Hemorrhage in early pregnancy, unspecified; Z3A.08 8 weeks gestation of pregnancy
CPT/HCPCS: 76817; 83021; 86592; 86703; 86704; 86706; 86762; 86787; 86803; 86850; 87086; 87340; 87491; 87591